=== PATIENT | male | born 1960 | race Caucasian/White ===

== ENCOUNTER 2018-01-07 09:49 | Emergency (ER) | payer BC ==
[2018-01-07] MEDS ORDERED: Sodium Chloride 0.9% 10 ML Syringe FLUSH PRN (10:19)
[2018-01-07] MEDS ORDERED: Sodium Chloride 0.9% 2.5 ML Syringe FLUSH PRN (10:19)
[2018-01-07] MEDS ORDERED: Sodium Chloride 0.9% 1,000 ML IV ONE (10:19)
--- NOTE | 2018-01-07 10:30 | EDM.PDOC ---
ED HPI GENERAL MEDICAL PROBLEM - General Chief Complaint: Cardiovascular Problem Stated Complaint: PT IS HAVING REACTION TO HIS MEDS Time Seen by Provider: 01/07/18 10:21 Source of Information: Reports: Patient History Limitations: Reports: No Limitations - History of Present Illness INITIAL COMMENTS - FREE TEXT/NARRATIVE: HISTORY AND PHYSICAL: History of present illness: Patient is a 57-year-old male here with concerns of a reaction to his medications. He states that he is having muscle cramping, dizziness, ringing in his ears, and feeling jittery. He states the cramping in his calves is bothering him the most. He reports he became jittery after using his Bevespi inhaler. He was started on multiple new medications by Dr. Galloway on 01/05. He was started on Buspirone for depression, HCTZ and losartan for HTN, and Bevespi for COPD. Patient states that he is dehydrated. He reports he has had issues with diarrhea chronically but it has been worse since starting these new medications. He denies any nausea or vomiting. He was seen in the ER on 12/20 for back pain and muscle cramps and was started on flexeril and diclofenac at that time. He states he had a chest pressure yesterday but states this is his GERD, he denies any pain today. He has had this pain for weeks. He denies any shortness of breath, diaphoresis, or radiation of pain to left jaw or arm. Patient has a follow up with Dr. Galloway on 01/10. Review of systems: As per history of present illness and below otherwise all systems reviewed and negative. Past medical history: As per history of present illness and as reviewed below otherwise noncontributory. Surgical history: As per history of present illness and as reviewed below otherwise noncontributory. Social history: No reported history of drug or alcohol abuse. Family history: As per history of present illness and as reviewed below otherwise noncontributory. Physical exam: General: patient sitting comfortably in no acute distress HEENT: Atraumatic, normocephalic, pupils reactive, negative for conjunctival pallor or scleral icterus, mucous membranes moist, throat clear, neck supple, nontender, trachea midline. Lungs: Clear to auscultation, breath sounds equal bilaterally, chest nontender. Heart: S1S2, regular, negative for clicks, rubs, or JVD. Abdomen: Soft, nondistended, nontender. Negative for masses or hepatosplenomegaly. Negative for costovertebral tenderness. Pelvis: Stable nontender. Genitourinary: Deferred. Rectal: Deferred. Extremities: Cramping noted in the calves. There is ecchymosis to the right calf. No edema noted. Atraumatic, negative for cords or calf pain. Neurovascular unremarkable. Neuro: Awake, alert, oriented. Cranial nerves II through XII unremarkable. Cerebellum unremarkable. Motor and sensory unremarkable throughout. Exam nonfocal. Notes: Patient reports feeling much better after fluids Diagnostics: CBC, CMP, Troponin EKG Therapeutics: 1L NS IV Impression: Muscle cramping Plan: 1. Take flexeril and diclofenac as directed. May take tylenol if needed but avoid additional NDSAIDs while taking diclofenac 2. Follow up with your primary care provider 3. Return ED as needed as discussed Definitive disposition and diagnosis as appropriate pending reevaluation and review of above. Bilateral Lower Leg Pain Score (Numeric/FACES): 8 - Related Data Allergies Allergy/AdvReac Type Severity Reaction Status Date / Time No Known Allergies Allergy Verified 12/20/17 13:31 Home Meds: Home Meds Cyclobenzaprine [Flexeril] 10 mg PO TID PRN #21 tab 12/20/17 [Rx] Diclofenac Sodium [Voltaren] 75 mg PO BIDMEALS PRN #30 tab.cr 12/20/17 [Rx] Omeprazole 1 tab PO DAILY 12/20/17 [History] Glycopyrrolate/Formoterol Fum [Bevespi Aerosphere Inhaler] 1 puff 01/07/18 [ History] Losartan [Cozaar] 50 mg DAILY 01/07/18 [History] busPIRone HCl [Buspirone HCl] 7.5 mg BID 01/07/18 [History] hydroCHLOROthiazide [Hydrochlorothiazide] 12.5 mg DAILY 01/07/18 [History] Past Medical History Gastrointestinal History: Reports: GERD - Infectious Disease History Infectious Disease History: Reports: Chicken Pox, Measles - Past Surgical History Musculoskeletal Surgical History: Reports: Other (See Below) Other Musculoskeletal Surgeries/Procedures:: Right knee, Right ankle Social & Family History - Family History Family Medical History: Noncontributory - Caffeine Use Caffeine Use: Reports: Coffee ED ROS GENERAL - Review of Systems Review Of Systems: ROS reveals no pertinent complaints other than HPI. ED EXAM, GENERAL - Physical Exam Exam: See Below (see dictation) Course - Vital Signs Last Recorded V/S: Last Vital Signs Temp 36.4 C 01/07/18 10:23 Pulse 91 01/07/18 10:23 Resp 18 01/07/18 10:23 BP 123/94 H 01/07/18 10:23 Pulse Ox 98 01/07/18 10:23 - Orders/Labs/Meds Orders: Active Orders 24 hr Category Date Time Status EKG 12 Lead [EKG Documentation Completion] [RC] STAT Care 01/07/18 10:09 Active Sodium Chloride 0.9% [Saline Flush] Med 01/07/18 10:19 Active 10 ml FLUSH ASDIRECTED PRN Sodium Chloride 0.9% [Saline Flush] Med 01/07/18 10:19 Active 2.5 ml FLUSH ASDIRECTED PRN Saline Lock Insert [OM.PC] Stat Oth 01/07/18 10:19 Ordered Medication Orders Sodium Chloride (Saline Flush) 10 ml FLUSH ASDIRECTED PRN PRN Reason: Keep Vein Open Sodium Chloride (Saline Flush) 2.5 ml FLUSH ASDIRECTED PRN PRN Reason: Keep Vein Open Labs: Laboratory Tests 01/07/18 01/07/18 01/07/18 Range/Units 10:18 10:18 10:18 WBC 8.71 (4.0-11.0) K/uL RBC 4.95 (4.50-5.90) M/uL Hgb 16.8 (13.0-17.0) g/dL Hct 48.9 (38.0-50.0) % MCV 98.8 H (80.0-98.0) fL MCH 33.9 H (27.0-32.0) pg MCHC 34.4 (31.0-37.0) g/dL RDW Std Deviation 55.2 (28.0-62.0) fl RDW Coeff of Marito 15 (11.0-15.0) % Plt Count 190 (150-400) K/uL MPV 10.80 (7.40-12.00) fL Add Manual Diff YES Neutrophils % (Manual) 77 (48.0-80.0) % Band Neutrophils % 6 % Lymphocytes % (Manual) 16 (16.0-40.0) % Monocytes % (Manual) 1 (0.0-15.0) % Nucleated RBC % 0.0 /100WBC Absolute Seg Neuts 6.7 H (1.4-5.7) Band Neutrophils # 0.5 Lymphocytes # (Manual) 1.4 (0.6-2.4) Monocytes # (Manual) 0.1 (0.0-0.8) Nucleated RBCs # 0 K/uL Sodium 133 L (136-148) mmol/L Potassium 4.0 (3.5-5.1) mmol/L Chloride 99 (98-107) mmol/L Carbon Dioxide 24.5 (21.0-32.0) mmol/L BUN 13 (7.0-18.0) mg/dL Creatinine 1.2 (0.8-1.3) mg/dL Est Cr Clr Drug Dosing TNP Estimated GFR (MDRD) > 60.0 ml/min Glucose 136 H (74-106) mg/dL Calcium 9.2 (8.5-10.1) mg/dL Total Bilirubin 1.0 (0.2-1.0) mg/dL AST 22 (15-37) IU/L ALT 38 (14-63) IU/L Alkaline Phosphatase 58 (46-116) U/L Creatine Kinase 404 H (26-308) U/L Troponin I < 0.050 (0.000-0.056) ng/mL Total Protein 7.6 (6.4-8.2) g/dL Albumin 3.8 (3.4-5.0) g/dL Globulin 3.8 H (2.0-3.5) g/dL Albumin/Globulin Ratio 1.0 L (1.3-2.8) Meds: Medications Generic Name Dose Route Start Last Admin Trade Name Freq PRN Reason Stop Dose Admin Sodium Chloride 10 ml 01/07/18 10:19 Saline Flush FLUSH ASDIRECTED PRN Keep Vein Open Sodium Chloride 2.5 ml 01/07/18 10:19 Saline Flush FLUSH ASDIRECTED PRN Keep Vein Open Discontinued Medications Generic Name Dose Route Start Last Admin Trade Name Freq PRN Reason Stop Dose Admin Sodium Chloride 1,000 mls @ 999 mls/hr 01/07/18 10:19 01/07/18 10:28 Normal Saline IV 01/07/18 11:19 999 mls/hr STAT ONE Administration Departure - Departure Time of Disposition: 11:25 Disposition: Home, Self-Care 01 Condition: Good Clinical Impression: Muscle cramping Referrals: PCP,None [Primary Care Provider] - Forms: ED Department Discharge Additional Instructions: The following information is given to patients seen in the emergency department who are being discharged to home. This information is to outline your options for follow-up care. We provide all patients seen in our emergency department with a follow-up referral. The need for follow-up, as well as the timing and circumstances, are variable depending upon the specifics of your emergency department visit. If you don't have a primary care physician on staff, we will provide you with a referral. We always advise you to contact your personal physician following an emergency department visit to inform them of the circumstance of the visit and for follow-up with them and/or the need for any referrals to a consulting specialist. The emergency department will also refer you to a specialist when appropriate. This referral assures that you have the opportunity for follow-up care with a specialist. All of these measure are taken in an effort to provide you with optimal care, which includes your follow-up. Under all circumstances we always encourage you to contact your private physician who remains a resource for coordinating your care. When calling for follow-up care, please make the office aware that this follow-up is from your recent emergency room visit. If for any reason you are refused follow-up, please contact the [facility] at and asked to speak to the emergency department charge nurse. [facility] [address] [place] [id number] 1. Take flexeril and diclofenac as directed. May take tylenol if needed but avoid additional NDSAIDs while taking diclofenac. Heat and muscle muscles as needed. 2. Follow up with your primary care provider 3. Return ED as needed as discussed - My Orders Last 24 Hours: My Active Orders 01/07/18 10:09 EKG 12 Lead [EKG Documentation Completion] [RC] STAT 01/07/18 10:19 Sodium Chloride 0.9% [Saline Flush] 10 ml FLUSH ASDIRECTED PRN Sodium Chloride 0.9% [Saline Flush] 2.5 ml FLUSH ASDIRECTED PRN Saline Lock Insert [OM.PC] Stat - Assessment/Plan Last 24 Hours: My Active Orders 01/07/18 10:09 EKG 12 Lead [EKG Documentation Completion] [RC] STAT 01/07/18 10:19 Sodium Chloride 0.9% [Saline Flush] 10 ml FLUSH ASDIRECTED PRN Sodium Chloride 0.9% [Saline Flush] 2.5 ml FLUSH ASDIRECTED PRN Saline Lock Insert [OM.PC] Stat
[2018-01-07 11:10] LABS: CHLORIDE,CL 99 mmol/L (98-107); SODIUM,NA 133 mmol/L (136-148)
== END 2018-01-07 11:40 | disposition home or self-care (01) ==
LOC: MW.ED 09:49
DX: R25.2 Cramp and spasm (principal); K21.9 Gastro-esophageal reflux disease without esophagitis; Z79.899 Other long term (current) drug therapy
CPT/HCPCS: 36415; 80053; 82550; 84484; 85025; 93005; 96360; 99283; J7040

== ENCOUNTER 2018-01-14 12:54 | Observation (INO) | payer BC ==
[2018-01-14] MEDS ORDERED: Sodium Chloride 0.9% 1,000 ML IV ONE ×2 (13:11→14:27)
[2018-01-14] MEDS ORDERED: Pantoprazole 40 MG Vial IVPUSH ONE (13:11)
[2018-01-14] MEDS ORDERED: Aspirin 81 MG Tab.Chew PO ONE (13:11)
[2018-01-14] MEDS ORDERED: LORazepam 2 MG/ML SDV IVPUSH ONE ×2 (13:11→22:30)
[2018-01-14] MEDS ORDERED: Sodium Chloride 0.9% 10 ML Syringe FLUSH PRN (13:11)
[2018-01-14] MEDS ORDERED: Sodium Chloride 0.9% 2.5 ML Syringe FLUSH PRN (13:11)
[2018-01-14] MEDS ORDERED: Ondansetron 4 MG/2 ML SDV IVPUSH ONE (13:11)
--- NOTE | 2018-01-14 13:18 | EDM.PDOC ---
ED HPI GENERAL MEDICAL PROBLEM - General Chief Complaint: Chest Pain Stated Complaint: CHEST PAIN Time Seen by Provider: 01/14/18 13:00 - History of Present Illness INITIAL COMMENTS - FREE TEXT/NARRATIVE: HISTORY AND PHYSICAL: History of present illness: The patient is a 57-year-old male who follows in our clinics with Dr. Galloway and has a history of hypertension hypercholesterolemia and depression and is currently being worked up for COPD as he is a smoker and presents with complaints of nausea and vomiting that started at 2 AM after he ate pizza at lunch, which he never eats, but no diarrhea and now is experiencing midsternal chest pain pressure. He says that the pain started soon after vomiting but was in intensity until he was doing some activities at work when he felt like it got worse. Today's visit is the patient's third ER visit this month and he was seen here in December 20 for back pain and was treated he followed up with his provider in the clinic on January 05 and then he was here on January 04 for possible reaction to his medications. He says he has acid reflux and on that last ER visit he did complain of some chest pain that he thought was his acid reflux but he was evaluated and those tests were all negative. Since that visit he has followed up with his provider in the clinic who felt that he was not having a reaction to meds but he was just using them properly and those medications were not stopped. The patient does admit that he does drink a lot of caffeinated products and smokes cigarettes but denies drug use. He says the pain as a burning stabbing like pain and it did start after the vomiting and now he is feeling somewhat anxious. The patient says he can be an anxious renzo. The patient denies any trauma to his chest and has no abdominal pain per se and has had no diarrhea. He says that since the vomiting has had not much to eat or drink. The patient says that he has had chest pain in the past but has always attributed to his acid reflux but he thinks that this feels much differently. Please note that the patient with the symptoms has no shortness of breath The patient tells nursing that when he was at his last clinic appointment Dr. Galloway did adjust his blood pressure medications and he is not sure if that is contributing. The patient had pulmonary function tests done in the last few days as well the results of which he does not know. Review of systems: As per history of present illness and below otherwise all systems reviewed and negative. Past medical history: As per history of present illness and as reviewed below otherwise noncontributory. Surgical history: As per history of present illness and as reviewed below otherwise noncontributory. Social history: No reported history of drug or alcohol abuse. Family history: As per history of present illness and as reviewed below otherwise noncontributory. Physical exam: General: Well-developed well-nourished thin man who is nontoxic and vital signs are noted by me. He seems somewhat anxious in the room visiting and twitching but is cooperative and interactive. HEENT: Atraumatic, normocephalic, negative for conjunctival pallor or scleral icterus, mucous membranes tacky throat clear, neck supple, nontender, trachea midline. Lungs: Clear to auscultation, breath sounds equal bilaterally, chest nontender. There is no wheezing or stridor. There is no crepitus on palpation of the chest and no chest wall tenderness. Heart: S1S2, regular rhythm and tachycardic rate of my evaluation Abdomen: Soft, mildly distended nontender. Negative for masses or hepatosplenomegaly. Slightly full active bowel sounds and the patient has tympany on percussion of the upper abdomen without rebound or guarding. There is an umbilical/supraumbilical vertical small incision from the patient's umbilical hernia repair in the past and I do not feel any overt hernial defect but there is tenderness with palpation of this area. Pelvis: Stable nontender. Genitourinary: Deferred. Rectal: Deferred. Extremities: Atraumatic, negative for cords or calf pain. Neurovascular unremarkable. No pedal edema or leg asymmetry Neuro: Awake, alert, oriented. Cranial nerves II through XII unremarkable. Cerebellum unremarkable. Motor and sensory unremarkable throughout. Exam nonfocal. Skin: There is no diaphoresis turgor is normal and there are no overt rashes or lesions Diagnostics: EKG CBC CMP amylase lipase troponin INR H. pylori UA abdominal films with chest x-ray scan of the abdomen and pelvis Therapeutics: IV O2 monitor IV fluids Protonix Zofran Ativan Patient had EKG and cardiac enzymes performed on his last ED visit on January 07 which were negative. Patient's BUN/creatinine today are 23 and 1.9 which is up from his blood work performed on January 07 revealing a BU 1 of 13 and creatinine 1.2. This would be consistent with the patient's intractable vomiting and clinical dehydration. Patient's heart rate is improving and I will give a second liter of IV fluids. He is aware of testing results and currently is not having any chest pain but still feels distended and bloated. We will proceed to do a CT scan of the abdomen and pelvis in light of the x-ray findings Patient's heart rate is 99 blood pressure 119/81 1601: I discussed the case with Dr. Brannon and he would like admission to go to the hospitalist with him on his consult and he would like an NG tube to be placed. He also wanted me to get the old op note from the patient's ventral hernia repair but the patient tells me that that was more than 10 years ago. Nursing still will try to investigate getting this information. Patient is now saying that he doesn't even recall what hospital but it's someplace in [facility] and he is not entirely sure of the exact year. I will inform Dr Brannon of this information. 1642: Dr Nguyen is aware of this case and accepts the patient for admission. Patient also is aware of all testing results and is agreeable with admission. Impression: Small bowel obstruction Definitive disposition and diagnosis as appropriate pending reevaluation and review of above. Chest Pain Score (Numeric/FACES): 8 - Related Data Allergies Allergy/AdvReac Type Severity Reaction Status Date / Time No Known Allergies Allergy Verified 01/14/18 14:06 Home Meds: Home Meds Cyclobenzaprine [Flexeril] 10 mg PO TID PRN #21 tab 12/20/17 [Rx] Diclofenac Sodium [Voltaren] 75 mg PO BIDMEALS PRN #30 tab.cr 12/20/17 [Rx] Omeprazole 1 tab PO DAILY 12/20/17 [History] Glycopyrrolate/Formoterol Fum [Bevespi Aerosphere Inhaler] 1 puff INH 01/07/18 [ History] Losartan [Cozaar] 50 mg PO DAILY 01/07/18 [History] busPIRone HCl [Buspirone HCl] 7.5 mg PO BID 01/07/18 [History] hydroCHLOROthiazide [Hydrochlorothiazide] 12.5 mg PO DAILY 01/07/18 [History] Past Medical History Cardiovascular History: Reports: Heart Murmur, Hypertension, SOB on Exertion Respiratory History: Reports: COPD Gastrointestinal History: Reports: GERD Genitourinary History: Reports: Prostate Disorder Musculoskeletal History: Reports: Back Pain, Chronic, Fracture Psychiatric History: Reports: Addiction Other Psychiatric History: prior opioid addiction 7 yrs ago Endocrine/Metabolic History: Reports: Other (See Below) Other Endocrine/Metabolic History: "thyroid problems" - Infectious Disease History Infectious Disease History: Reports: Chicken Pox, Measles - Past Surgical History Musculoskeletal Surgical History: Reports: Other (See Below) Other Musculoskeletal Surgeries/Procedures:: Right knee, Right ankle Social & Family History - Family History Family Medical History: Noncontributory - Caffeine Use Caffeine Use: Reports: Coffee ED ROS GENERAL - Review of Systems Review Of Systems: ROS reveals no pertinent complaints other than HPI. ED EXAM, GENERAL - Physical Exam Exam: See Below (See dictation) Course - Vital Signs Last Recorded V/S: Last Vital Signs Temp 35.9 C 01/14/18 12:54 Pulse 99 01/14/18 16:00 Resp 16 01/14/18 16:00 BP 119/81 01/14/18 16:00 Pulse Ox 97 01/14/18 16:00 - Orders/Labs/Meds Orders: Active Orders 24 hr Category Date Time Status Patient Status [ADT] Stat ADT 01/14/18 16:12 Active Cardiac Monitoring [RC] . DIRECTED Care 01/14/18 13:10 Active EKG Documentation Completion [RC] STAT Care 01/14/18 13:10 Active Notify Provider Consults [RC] ASDIRECTED Care 01/14/18 16:02 Active Oxygen Therapy, ED [RC] ASDIRECTED Care 01/14/18 13:10 Active Pulse Oximetry [RC] ASDIRECTED Care 01/14/18 13:10 Active Consult to Physician [CONS] Stat Cons 01/14/18 16:02 Active Abdomen Pelvis wo Cont [CT] Stat Exams 01/14/18 14:27 Taken UA W/MICROSCOPIC [URIN] Stat Lab 01/14/18 14:20 Ordered Lactated Ringers [Ringers, Lactated] 1,000 ml Med 01/14/18 16:00 Active IV ASDIRECTED Sodium Chloride 0.9% [Saline Flush] Med 01/14/18 13:11 Active 10 ml FLUSH ASDIRECTED PRN Sodium Chloride 0.9% [Saline Flush] Med 01/14/18 13:11 Active 2.5 ml FLUSH ASDIRECTED PRN Nasogastric Orogastric Tube Insertion [OM.PC] Stat Ot 01/14/18 16:02 Ordered Saline Lock Insert [OM.PC] Stat Ot 01/14/18 13:10 Ordered Medication Orders Lactated Ringer's (Ringers, Lactated) 1,000 mls @ 150 mls/hr IV ASDIRECTED TERENCE Last Admin: 01/14/18 16:05 Dose: 150 mls/hr Sodium Chloride (Saline Flush) 10 ml FLUSH ASDIRECTED PRN PRN Reason: Keep Vein Open Sodium Chloride (Saline Flush) 2.5 ml FLUSH ASDIRECTED PRN PRN Reason: Keep Vein Open Labs: Laboratory Tests 01/14/18 01/14/18 01/14/18 Range/Units 13:21 13:21 13:21 WBC 10.49 (4.0-11.0) K/uL RBC 5.06 (4.50-5.90) M/uL Hgb 17.0 (13.0-17.0) g/dL Hct 49.0 (38.0-50.0) % MCV 96.8 (80.0-98.0) fL MCH 33.6 H (27.0-32.0) pg MCHC 34.7 (31.0-37.0) g/dL RDW Std Deviation 51.3 (28.0-62.0) fl RDW Coeff of Marito 15 (11.0-15.0) % Plt Count 167 (150-400) K/uL MPV 11.20 (7.40-12.00) fL Neut % (Auto) 96.1 H (48.0-80.0) % Lymph % (Auto) 2.9 L (16.0-40.0) % Major % (Auto) 0.6 (0.0-15.0) % Eos % (Auto) 0.2 (0.0-7.0) % Baso % (Auto) 0.2 (0.0-1.5) % Neut # (Auto) 10.1 H (1.4-5.7) K/uL Lymph # (Auto) 0.3 L (0.6-2.4) K/uL Major # (Auto) 0.1 (0.0-0.8) K/uL Eos # (Auto) 0.0 (0.0-0.7) K/uL Baso # (Auto) 0.0 (0.0-0.1) K/uL Nucleated RBC % 0.0 /100WBC Nucleated RBCs # 0 K/uL INR 1.04 Sodium 133 L (136-148) mmol/L Potassium 3.1 L (3.5-5.1) mmol/L Chloride 96 L (98-107) mmol/L Carbon Dioxide 24.4 (21.0-32.0) mmol/L BUN 23 H (7.0-18.0) mg/dL Creatinine 1.9 H (0.8-1.3) mg/dL Est Cr Clr Drug Dosing 45.83 mL/min Estimated GFR (MDRD) 36.6 ml/min Glucose 126 H (74-106) mg/dL Calcium 9.3 (8.5-10.1) mg/dL Total Bilirubin 2.0 H (0.2-1.0) mg/dL AST 31 (15-37) IU/L ALT 39 (14-63) IU/L Alkaline Phosphatase 69 (46-116) U/L Troponin I < 0.050 (0.000-0.056) ng/mL Total Protein 7.6 (6.4-8.2) g/dL Albumin 4.0 (3.4-5.0) g/dL Globulin 3.6 H (2.0-3.5) g/dL Albumin/Globulin Ratio 1.1 L (1.3-2.8) Amylase 42 (25-115) U/L Lipase 151 (73-393) U/L Urine Color Urine Appearance Urine pH (5.0-8.0) Ur Specific [place] (1.001-1.035) Urine Protein (NEGATIVE) mg/dL Urine Glucose (UA) (NEGATIVE) mg/dL Urine Ketones (NEGATIVE) mg/dL Urine Occult Blood (NEGATIVE) Urine Nitrite (NEGATIVE) Urine Bilirubin (NEGATIVE) Urine Ictotest Urine Urobilinogen (<2.0) EU/dL Ur Leukocyte Esterase (NEGATIVE) Urine RBC (0-2/HPF) Urine WBC (0-5/HPF) Ur Epithelial Cells (NONE-FEW) Amorphous Sediment (NEGATIVE) Urine Bacteria (NEGATIVE) H. pylori IgG Antibody (NEG) 01/14/18 01/14/18 Range/Units 13:21 14:20 WBC (4.0-11.0) K/uL RBC (4.50-5.90) M/uL Hgb (13.0-17.0) g/dL Hct (38.0-50.0) % MCV (80.0-98.0) fL MCH (27.0-32.0) pg MCHC (31.0-37.0) g/dL RDW Std Deviation (28.0-62.0) fl RDW Coeff of Marito (11.0-15.0) % Plt Count (150-400) K/uL MPV (7.40-12.00) fL Neut % (Auto) (48.0-80.0) % Lymph % (Auto) (16.0-40.0) % Major % (Auto) (0.0-15.0) % Eos % (Auto) (0.0-7.0) % Baso % (Auto) (0.0-1.5) % Neut # (Auto) (1.4-5.7) K/uL Lymph # (Auto) (0.6-2.4) K/uL Major # (Auto) (0.0-0.8) K/uL Eos # (Auto) (0.0-0.7) K/uL Baso # (Auto) (0.0-0.1) K/uL Nucleated RBC % /100WBC Nucleated RBCs # K/uL INR Sodium (136-148) mmol/L Potassium (3.5-5.1) mmol/L Chloride (98-107) mmol/L Carbon Dioxide (21.0-32.0) mmol/L BUN (7.0-18.0) mg/dL Creatinine (0.8-1.3) mg/dL Est Cr Clr Drug Dosing mL/min Estimated GFR (MDRD) ml/min Glucose (74-106) mg/dL Calcium (8.5-10.1) mg/dL Total Bilirubin (0.2-1.0) mg/dL AST (15-37) IU/L ALT (14-63) IU/L Alkaline Phosphatase (46-116) U/L Troponin I (0.000-0.056) ng/mL Total Protein (6.4-8.2) g/dL Albumin (3.4-5.0) g/dL Globulin (2.0-3.5) g/dL Albumin/Globulin Ratio (1.3-2.8) Amylase (25-115) U/L Lipase (73-393) U/L Urine Color YELLOW Urine Appearance CLEAR Urine pH 6.0 (5.0-8.0) Ur Specific [place] 1.020 (1.001-1.035) Urine Protein TRACE (NEGATIVE) mg/dL Urine Glucose (UA) NEGATIVE (NEGATIVE) mg/dL Urine Ketones NEGATIVE (NEGATIVE) mg/dL Urine Occult Blood NEGATIVE (NEGATIVE) Urine Nitrite NEGATIVE (NEGATIVE) Urine Bilirubin SMALL H (NEGATIVE) Urine Ictotest NEGATIVE Urine Urobilinogen 0.2 (<2.0) EU/dL Ur Leukocyte Esterase NEGATIVE (NEGATIVE) Urine RBC 0-1 (0-2/HPF) Urine WBC 0-1 (0-5/HPF) Ur Epithelial Cells RARE (NONE-FEW) Amorphous Sediment LIGHT (NEGATIVE) Urine Bacteria RARE (NEGATIVE) H. pylori IgG Antibody NEGATIVE (NEG) Meds: Medications Generic Name Dose Route Start Last Admin Trade Name Freq PRN Reason Stop Dose Admin Lactated Ringer's 1,000 mls @ 150 mls/hr 01/14/18 16:00 01/14/18 16:05 Ringers, Lactated IV 150 mls/hr ASDIRECTED TERENCE Administration Sodium Chloride 10 ml 01/14/18 13:11 Saline Flush FLUSH ASDIRECTED PRN Keep Vein Open Sodium Chloride 2.5 ml 01/14/18 13:11 Saline Flush FLUSH ASDIRECTED PRN Keep Vein Open Discontinued Medications Generic Name Dose Route Start Last Admin Trade Name Freq PRN Reason Stop Dose Admin Aspirin 324 mg 01/14/18 13:11 01/14/18 13:32 Aspirin PO 01/14/18 13:12 324 mg ONETIME ONE Administration Sodium Chloride 1,000 mls @ 999 mls/hr 01/14/18 13:11 01/14/18 13:30 Normal Saline IV 01/14/18 14:11 999 mls/hr STAT ONE Administration Sodium Chloride 1,000 mls @ 999 mls/hr 01/14/18 14:27 01/14/18 14:30 Normal Saline IV 01/14/18 15:27 999 mls/hr STAT ONE Administration Lorazepam 1 mg 01/14/18 13:11 01/14/18 13:34 Ativan IVPUSH 01/14/18 13:12 1 mg ONETIME ONE Administration Ondansetron HCl 4 mg 01/14/18 13:11 01/14/18 13:31 Zofran IVPUSH 01/14/18 13:12 4 mg ONETIME ONE Administration Pantoprazole Sodium 80 mg 01/14/18 13:11 01/14/18 13:33 Protonix Iv IVPUSH 01/14/18 13:12 80 mg .BOLUS ONE Administration Departure - Departure Time of Disposition: 16:12 Disposition: Refer to Observation Condition: Good Clinical Impression: Small bowel obstruction - Discharge Information Referrals: PCP,None [Primary Care Provider] - Forms: ED Department Discharge - My Orders Last 24 Hours: My Active Orders 01/14/18 13:10 Cardiac Monitoring [RC] . DIRECTED EKG Documentation Completion [RC] STAT Oxygen Therapy, ED [RC] ASDIRECTED Pulse Oximetry [RC] ASDIRECTED Saline Lock Insert [OM.PC] Stat 01/14/18 13:11 Sodium Chloride 0.9% [Saline Flush] 10 ml FLUSH ASDIRECTED PRN Sodium Chloride 0.9% [Saline Flush] 2.5 ml FLUSH ASDIRECTED PRN 01/14/18 14:20 UA W/MICROSCOPIC [URIN] Stat 01/14/18 14:27 Abdomen Pelvis wo Cont [CT] Stat 01/14/18 16:00 Lactated Ringers [Ringers, Lactated] 1,000 ml IV ASDIRECTED 01/14/18 16:02 Notify Provider Consults [RC] ASDIRECTED Consult to Physician [CONS] Stat Nasogastric Orogastric Tube Insertion [OM.PC] Stat 01/14/18 16:12 Patient Status [ADT] Stat - Assessment/Plan Last 24 Hours: My Active Orders 01/14/18 13:10 Cardiac Monitoring [RC] . DIRECTED EKG Documentation Completion [RC] STAT Oxygen Therapy, ED [RC] ASDIRECTED Pulse Oximetry [RC] ASDIRECTED Saline Lock Insert [OM.PC] Stat 01/14/18 13:11 Sodium Chloride 0.9% [Saline Flush] 10 ml FLUSH ASDIRECTED PRN Sodium Chloride 0.9% [Saline Flush] 2.5 ml FLUSH ASDIRECTED PRN 01/14/18 14:20 UA W/MICROSCOPIC [URIN] Stat 01/14/18 14:27 Abdomen Pelvis wo Cont [CT] Stat 01/14/18 16:00 Lactated Ringers [Ringers, Lactated] 1,000 ml IV ASDIRECTED 01/14/18 16:02 Notify Provider Consults [RC] ASDIRECTED Consult to Physician [CONS] Stat Nasogastric Orogastric Tube Insertion [OM.PC] Stat 01/14/18 16:12 Patient Status [ADT] Stat
[2018-01-14 14:08] LABS: CHLORIDE,CL 96 mmol/L (98-107); SODIUM,NA 133 mmol/L (136-148)
--- NOTE | 2018-01-14 14:20 | CR ---
EXAMINATION: Chest and abdomen HISTORY: Pain COMPARISON: Dictated 12/20/2017 TECHNIQUE: PA chest and AP and upright views of the abdomen. FINDINGS: There is no free air under the diaphragm. Stool and gas is noted within the colon, however there are a few mildly prominent loops of small bowel measuring up to 4.8 cm. A few pill capsules are noted. No abnormal calcifications project over the kidneys. Visualized osseous structures appear nor mal. IMPRESSION: Few prominent loops of small bowel noted. This could represent a partial obstruction vers us ileus.
[2018-01-14] MEDS ORDERED: Lactated Ringers 1,000 ML IV SCH (16:00)
[2018-01-14] MEDS ORDERED: Morphine 2 MG/ML Syringe IVPUSH ONE (17:10)
--- NOTE | 2018-01-14 18:41 | PCM.SN ---
- Free Text/Narrative Note: Pt seen, chart reviewed; no abd pain, but hi ngt output upon insertion, 1250cc; k 3.1, keep k above 4; will follow with you [id number]
--- NOTE | 2018-01-14 18:42 | PCM.SN ---
- Free Text/Narrative Note: avoid lovenox, narcotics, thanks
[2018-01-14] MEDS ORDERED: Cyclobenzaprine 10 MG Tab PO PRN (19:51)
[2018-01-14] MEDS ORDERED: HYDROmorphone 4 MG/ML Syringe IVPUSH PRN (20:01)
[2018-01-14] MEDS: Sodium Chloride 0.9% with KCl 1,000 ML IV SCH (20:20)
--- NOTE | 2018-01-14 20:22 | PCM.HP ---
H&P History of Present Illness - General Admit Problem/Dx: Admission Diagnosis/Problem Admission Diagnosis/Problem Small bowel obstruction Chest Pain Score (Numeric/FACES): 8 - Related Data Allergies/Adverse Reactions: Allergies Allergy/AdvReac Type Severity Reaction Status Date / Time morphine Allergy Headache Verified 01/14/18 18:41 Home Medications: Home Meds Cyclobenzaprine [Flexeril] 10 mg PO TID PRN #21 tab 12/20/17 [Rx] Diclofenac Sodium [Voltaren] 75 mg PO BIDMEALS PRN #30 tab.cr 12/20/17 [Rx] Omeprazole 1 tab PO DAILY 12/20/17 [History] Glycopyrrolate/Formoterol Fum [Bevespi Aerosphere Inhaler] 1 puff INH 01/07/18 [ History] Losartan [Cozaar] 50 mg PO DAILY 01/07/18 [History] busPIRone HCl [Buspirone HCl] 7.5 mg PO BID 01/07/18 [History] hydroCHLOROthiazide [Hydrochlorothiazide] 12.5 mg PO DAILY 01/07/18 [History] Past Medical History Cardiovascular History: Reports: Heart Murmur, Hypertension, SOB on Exertion Respiratory History: Reports: COPD Gastrointestinal History: Reports: GERD Genitourinary History: Reports: Prostate Disorder Musculoskeletal History: Reports: Back Pain, Chronic, Fracture Psychiatric History: Reports: Addiction Other Psychiatric History: prior opioid addiction 7 yrs ago Endocrine/Metabolic History: Reports: Other (See Below) Other Endocrine/Metabolic History: "thyroid problems" - Infectious Disease History Infectious Disease History: Reports: Chicken Pox, Measles - Past Surgical History Musculoskeletal Surgical History: Reports: Other (See Below) Other Musculoskeletal Surgeries/Procedures:: Right knee, Right ankle Social & Family History - Family History Family Medical History: Noncontributory - Tobacco Use Smoking Status *Q: Current Every Day Smoker Years of Tobacco use: 15 Packs/Tins Daily: 0.5 - Caffeine Use Caffeine Use: Reports: Coffee Other Caffeine Use: 3 cups - Recreational Drug Use Recreational Drug Use: No Exam - Vital Signs Vital Signs: Last Vital Signs Temp 98.2 F 01/14/18 20:00 Pulse 62 01/14/18 20:00 Resp 18 01/14/18 20:00 BP 104/69 01/14/18 20:00 Pulse Ox 96 01/14/18 20:00 Weight: 184 lb 12.8 oz - Patient Data Lab Results Last 24 hrs: Laboratory Results - last 24 hr 01/14/18 01/14/18 01/14/18 Range/Units 13:21 13:21 13:21 WBC 10.49 (4.0-11.0) K/uL RBC 5.06 (4.50-5.90) M/uL Hgb 17.0 (13.0-17.0) g/dL Hct 49.0 (38.0-50.0) % MCV 96.8 (80.0-98.0) fL MCH 33.6 H (27.0-32.0) pg MCHC 34.7 (31.0-37.0) g/dL RDW Std Deviation 51.3 (28.0-62.0) fl RDW Coeff of Marito 15 (11.0-15.0) % Plt Count 167 (150-400) K/uL MPV 11.20 (7.40-12.00) fL Neut % (Auto) 96.1 H (48.0-80.0) % Lymph % (Auto) 2.9 L (16.0-40.0) % [place] % (Auto) 0.6 (0.0-15.0) % Eos % (Auto) 0.2 (0.0-7.0) % Baso % (Auto) 0.2 (0.0-1.5) % Neut # (Auto) 10.1 H (1.4-5.7) K/uL Lymph # (Auto) 0.3 L (0.6-2.4) K/uL [place] # (Auto) 0.1 (0.0-0.8) K/uL Eos # (Auto) 0.0 (0.0-0.7) K/uL Baso # (Auto) 0.0 (0.0-0.1) K/uL Nucleated RBC % 0.0 /100WBC Nucleated RBCs # 0 K/uL INR 1.04 Sodium 133 L (136-148) mmol/L Potassium 3.1 L (3.5-5.1) mmol/L Chloride 96 L (98-107) mmol/L Carbon Dioxide 24.4 (21.0-32.0) mmol/L BUN 23 H (7.0-18.0) mg/dL Creatinine 1.9 H (0.8-1.3) mg/dL Est Cr Clr Drug Dosing 45.83 mL/min Estimated GFR (MDRD) 36.6 ml/min Glucose 126 H (74-106) mg/dL Calcium 9.3 (8.5-10.1) mg/dL Total Bilirubin 2.0 H (0.2-1.0) mg/dL AST 31 (15-37) IU/L ALT 39 (14-63) IU/L Alkaline Phosphatase 69 (46-116) U/L Troponin I < 0.050 (0.000-0.056) ng/mL Total Protein 7.6 (6.4-8.2) g/dL Albumin 4.0 (3.4-5.0) g/dL Globulin 3.6 H (2.0-3.5) g/dL Albumin/Globulin Ratio 1.1 L (1.3-2.8) Amylase 42 (25-115) U/L Lipase 151 (73-393) U/L Urine Color Urine Appearance Urine pH (5.0-8.0) Ur Specific [place] (1.001-1.035) Urine Protein (NEGATIVE) mg/dL Urine Glucose (UA) (NEGATIVE) mg/dL Urine Ketones (NEGATIVE) mg/dL Urine Occult Blood (NEGATIVE) Urine Nitrite (NEGATIVE) Urine Bilirubin (NEGATIVE) Urine Ictotest Urine Urobilinogen (<2.0) EU/dL Ur Leukocyte Esterase (NEGATIVE) Urine RBC (0-2/HPF) Urine WBC (0-5/HPF) Ur Epithelial Cells (NONE-FEW) Amorphous Sediment (NEGATIVE) Urine Bacteria (NEGATIVE) H. pylori IgG Antibody (NEG) 01/14/18 01/14/18 Range/Units 13:21 14:20 WBC (4.0-11.0) K/uL RBC (4.50-5.90) M/uL Hgb (13.0-17.0) g/dL Hct (38.0-50.0) % MCV (80.0-98.0) fL MCH (27.0-32.0) pg MCHC (31.0-37.0) g/dL RDW Std Deviation (28.0-62.0) fl RDW Coeff of Marito (11.0-15.0) % Plt Count (150-400) K/uL MPV (7.40-12.00) fL Neut % (Auto) (48.0-80.0) % Lymph % (Auto) (16.0-40.0) % [place] % (Auto) (0.0-15.0) % Eos % (Auto) (0.0-7.0) % Baso % (Auto) (0.0-1.5) % Neut # (Auto) (1.4-5.7) K/uL Lymph # (Auto) (0.6-2.4) K/uL [place] # (Auto) (0.0-0.8) K/uL Eos # (Auto) (0.0-0.7) K/uL Baso # (Auto) (0.0-0.1) K/uL Nucleated RBC % /100WBC Nucleated RBCs # K/uL INR Sodium (136-148) mmol/L Potassium (3.5-5.1) mmol/L Chloride (98-107) mmol/L Carbon Dioxide (21.0-32.0) mmol/L BUN (7.0-18.0) mg/dL Creatinine (0.8-1.3) mg/dL Est Cr Clr Drug Dosing mL/min Estimated GFR (MDRD) ml/min Glucose (74-106) mg/dL Calcium (8.5-10.1) mg/dL Total Bilirubin (0.2-1.0) mg/dL AST (15-37) IU/L ALT (14-63) IU/L Alkaline Phosphatase (46-116) U/L Troponin I (0.000-0.056) ng/mL Total Protein (6.4-8.2) g/dL Albumin (3.4-5.0) g/dL Globulin (2.0-3.5) g/dL Albumin/Globulin Ratio (1.3-2.8) Amylase (25-115) U/L Lipase (73-393) U/L Urine Color YELLOW Urine Appearance CLEAR Urine pH 6.0 (5.0-8.0) Ur Specific [place] 1.020 (1.001-1.035) Urine Protein TRACE (NEGATIVE) mg/dL Urine Glucose (UA) NEGATIVE (NEGATIVE) mg/dL Urine Ketones NEGATIVE (NEGATIVE) mg/dL Urine Occult Blood NEGATIVE (NEGATIVE) Urine Nitrite NEGATIVE (NEGATIVE) Urine Bilirubin SMALL H (NEGATIVE) Urine Ictotest NEGATIVE Urine Urobilinogen 0.2 (<2.0) EU/dL Ur Leukocyte Esterase NEGATIVE (NEGATIVE) Urine RBC 0-1 (0-2/HPF) Urine WBC 0-1 (0-5/HPF) Ur Epithelial Cells RARE (NONE-FEW) Amorphous Sediment LIGHT (NEGATIVE) Urine Bacteria RARE (NEGATIVE) H. pylori IgG Antibody NEGATIVE (NEG) Result Diagrams: 01/14/18 13:21 01/14/18 13:21 Orders Last 24hrs: Active Orders 24 hr Category Date Time Status Patient Status [ADT] Stat ADT 01/14/18 16:12 Active Cardiac Monitoring [RC] . DIRECTED Care 01/14/18 13:10 Active EKG Documentation Completion [RC] STAT Care 01/14/18 13:10 Active NG [Gastrointestinal Tube Mgmt] [RC] ASDIRECTED Care 01/14/18 18:32 Active Notify Provider Consults [RC] ASDIRECTED Care 01/14/18 16:02 Active Oxygen Therapy, ED [RC] ASDIRECTED Care 01/14/18 13:10 Active Pulse Oximetry [RC] ASDIRECTED Care 01/14/18 13:10 Active Vital Signs [RC] Q4H Care 01/14/18 20:00 Active Consult to Physician [CONS] Stat Cons 01/14/18 16:02 Active Abdomen Pelvis wo Cont [CT] Stat Exams 01/14/18 14:27 Taken KUB [Abdomen 1V Flat] [CR] Stat Exams 01/14/18 16:45 Taken UA W/MICROSCOPIC [URIN] Stat Lab 01/14/18 14:20 Ordered HYDROmorphone [Dilaudid] Med 01/14/18 20:01 Active 0.5 mg IVPUSH Q3H PRN Potassium Chloride 40 meq Med 01/14/18 20:00 Active Sodium Chloride 0.9% [Normal Saline] 1,000 ml IV ASDIRECTED Sodium Chloride 0.9% [Saline Flush] Med 01/14/18 13:11 Active 10 ml FLUSH ASDIRECTED PRN Sodium Chloride 0.9% [Saline Flush] Med 01/14/18 13:11 Active 2.5 ml FLUSH ASDIRECTED PRN Nasogastric Orogastric Tube Insertion [OM.PC] Stat Oth 01/14/18 16:02 Ordered Saline Lock Insert [OM.PC] Stat Oth 01/14/18 13:10 Ordered Medication Orders Hydromorphone HCl (Dilaudid) 0.5 mg IVPUSH Q3H PRN PRN Reason: Pain (severe 7-10) Potassium Chloride 40 meq/ (Sodium Chloride) 1,020 mls @ 150 mls/hr IV ASDIRECTED TERENCE Sodium Chloride (Saline Flush) 10 ml FLUSH ASDIRECTED PRN PRN Reason: Keep Vein Open Sodium Chloride (Saline Flush) 2.5 ml FLUSH ASDIRECTED PRN PRN Reason: Keep Vein Open
[2018-01-14] MEDS: Phenol 1.4% Oral Spray 177 ML Bottle MUCMEM PRN ×2 (20:50→22:52)
[2018-01-14] MEDS ORDERED: busPIRone 5 MG Tab PO SCH (21:00)
[2018-01-14] MEDS ORDERED: HYDROmorphone 1 MG/ML Syringe IVPUSH PRN (21:48)
[2018-01-14] MEDS ORDERED: Nitroglycerin 2% Oint 1 GM UD Packet TOP PRN (22:04)
[2018-01-14] MEDS ORDERED: LORazepam 2 MG/ML SDV IVPUSH PRN (22:09)
[2018-01-14] MEDS: HYDROmorphone 1 MG/ML Syringe IVPUSH PRN (22:10)
[2018-01-14] MEDS ORDERED: Albuterol/Ipratropium 3.0-0.5 MG/3 ML Neb Soln NEB PRN (22:12)
[2018-01-14 23:19] LABS: CHLORIDE,CL 101 mmol/L (98-107); SODIUM,NA 136 mmol/L (136-148)
--- NOTE | 2018-01-15 02:39 | HP ---
DATE OF : 1960 PRIMARY CARE PHYSICIAN: None PCP HISTORY OF PRESENT ILLNESS: The patient is a 57-year-old man with a past medical history of back problems and hypertension, anxiety, hyperlipidemia, history of heart murmur, dyspnea on exertion, COPD, history of tobacco abuse, and addiction to opioids 7 years ago, and history of thyroid problems, who presented to emergency room because of chest pain that was like a pressure, it was in the middle of the chest and also was radiating in the left arm, which he felt numb and the patient thought that he is having a heart attack. The patient says that yesterday around 2:00 p.m., he ate a pizza 3 slices and afterwards, he started having abdominal pain that was stabbing, was severe and it was intermittent When he arrived home, he took tramadol and Vicodin for the pain and the pain became better and then he ate again a slice of bread with a tomato, and he woke up at night and vomited between 2:00 a.m. and 6:00 a.m. The patient says he vomited all the time and then he went to work and he was not feeling well and he vomited at work,too. He came back home and he felt his mouth was super dry and he developed chest pressure in the middle of the chest 8/10 in intensity for about an hour. In the emergency room, when he arrived, he was hypotensive with blood pressure 89/57, respiratory rate 22, oxygen by pulse oximetry 96%, and temperature 96.7, heart rate 120. The patient says he had hernia repair in 1990 , ventral hernia repaired around the umbilicus and since then, he had few episodes of abdominal pain with vomiting, the most recent one was 3 years ago. PAST MEDICAL HISTORY: The patient reports: 1. Heart murmur. 2. Hypertension. 3. Shortness of breath on exertion. 4. COPD. 5. GERD. 6. Prostate disorder with elevated PSA. The patient is supposed to follow up with Urology, Dr. Fields on February 15. 7. He has back pain. 8. Chronic fracture. 9. He has history of addiction, prior opiate addiction 7 years ago and he has thyroid problems. PAST SURGICAL HISTORY: 1. The patient has right knee surgery. 2. Right ankle surgery. ALLERGIES: The patient says that he has adverse reaction to morphine, he gets headache. SOCIAL HISTORY: He smokes half pack per day. Alcohol, couple of beers after work. No drug use. FAMILY HISTORY: His mom had kidney problems and at age of 83 and his father in 1995, he had an accident at work. REVIEW OF SYSTEMS: A 12-point review of systems is negative except as in history of present illness. PHYSICAL EXAMINATION: VITAL SIGNS: At admission as above. HEENT: His head is atraumatic and normocephalic. Pupils are equally reactive to light. NECK: Supple. No thyromegaly. No lymphadenopathy. HEART: S1, S2. Regular rhythm and rate. No murmurs. LUNGS: Clear to auscultation bilaterally. ABDOMEN: There is tenderness to palpation in the middle of the abdomen. Bowel sounds are present in all 4 quadrants. EXTREMITIES: There is no swelling. NEUROLOGIC: The patient is alert and oriented x3. There are no gross focal neurologic deficits. The patient has an NG tube. LABORATORY DATA: At admission; WBC 10.49, hemoglobin 17, hematocrit 49, and platelet count 167, neutrophils 96.1, lymphocytes 2.9. INR was 1. Sodium 133, potassium 3.1, chloride 96, CO2 of 24.4, BUN 23, creatinine 1.9, estimated creatinine clearance 45, glucose 126, calcium 9.3, total bilirubin is 2, phosphorus 5, magnesium 1.9, alkaline phosphatase 69. Troponin less than 0.05. Total protein 3.9, albumin 4, globulin 3.6, albumin-globulin ratio 1.1. Amylase 42, lipase is 151. TSH, third generation 13.71. The patient had a TSH done 7 days ago and it was 25.15. The patient had a lipid profile done on 01/05, which showed triglycerides 184, total cholesterol 330, LDL cholesterol 212, VLDL cholesterol 36, HDL 81. Amylase 42, lipase 151, PSA 5.77, free T4 was 0.43, TSH 13.71. EKG - NSR at 120 , no ST-T changes RADIOLOGIC DATA: The patient had an abdomen x-ray which showed air-fluid levels suggestive of small bowel obstruction, and then he had a CT of the abdomen done and a CT of the abdomen with impression, few prominent loops of small bowel noted. This could represent a partial obstruction versus ileus. Small bowel loops measuring up to 4.8 cm. The patient had surgery consult with Dr. White, who evaluated the patient. Dr. White was called from the emergency room. ASSESSMENT AND PLAN: 1. Partial small-bowel obstruction vs ileus The patient has an NG tube that drained about 800 mL of green fluid from the intestine since he came from [facility]. We will continue with low wall suctioning and we will put the patient n.p.o., and we will give patient IV fluids normal saline and potassium chloride 40 mEq, and we will follow, zofran iv for nausea up potassium in the morning. Potassium should be above 4 to prevent ileus secondary to hypokalemia secondary to electrolyte disturbances.For hypokalemia will supplement K with K iv 2. For chest pain r/o ACS the patient received in the emergency room, aspirin 325 mg full dose and we will follow up serial troponins q.6 hours and we will give the patient nitroglycerin paste to anterior chest wall, Dilaudid 0.5 mg q.3 hours p.r.n. for pain. 3. For elevated creatinine and also elevated hemoglobin, we will continue the patient with IV fluids. These are likely secondary to his protracted vomiting. 4. For hyperlipidemia, the patient will need to be started on atorvastatin once he is stable. 5. For elevated PSA, the patient to follow up with Urology on February 15. 6. For hypothyroidism, the patient to be continued with his home medication once his obstruction resolves and levothyroxine 50 mcg p.o. daily with breakfast. 7. For anxiety, the patient will be continued with buspirone 7.5 mg p.o. daily once his obstruction resolves when he is stable. Currently, he will be n.p.o. and no medication orally. 8. He has also hyperacidity and I would recommend to hold on his Diclofenac and he will be continued with Protonix 40 mg IV push daily. The patient received in the emergency room, pantoprazole 80 mg IV push once. The patient is also scheduled to have EGD colonoscopy with Dr. Mckinley on February 07. FABIOAL / SEYMOUR /[id number] BRIAN
[2018-01-15] MEDS: Sodium Chloride 0.9% with KCl 1,000 ML IV SCH (03:05)
[2018-01-15] MEDS: Phenol 1.4% Oral Spray 177 ML Bottle MUCMEM PRN ×4 (03:14→18:55)
[2018-01-15] MEDS: HYDROmorphone 1 MG/ML Syringe IVPUSH PRN ×2 (04:34→07:30)
--- NOTE | 2018-01-15 07:54 | HP ---
DATE OF : 1960 PRIMARY CARE PHYSICIAN: None PCP CONCERNING QUESTION: Abdominal distention. HISTORY OF PRESENT ILLNESS: The patient is a 57-year-old gentleman, and complaining of 12-hour history of acute onset of abdominal distention, and the patient denies any abdominal pain and also nausea. NG tube inserted in the emergency room and output 1200 mL. The patient remarked similar thing happened about 10 years ago and was treated just conservatively, no surgery. He had a ventral hernia repair, does not know whether there is mesh placed 20 years ago in [place], [place]. Last bowel movement was in the emergency room and currently the patient absolutely denied any abdominal pain. FAMILY HISTORY: Noncontributory. SOCIAL HISTORY: The patient is a smoker. ALLERGY TO MEDICATION: Please refer to nursing for details. PAST MEDICAL HISTORY: Denied diabetes, [place], or CVA. The patient has hypertension. PAST SURGICAL HISTORY: Ventral hernia repair, although no evidence of mesh placed. PHYSICAL EXAMINATION: GENERAL: A very pleasant, nice gentleman, smiled to the doctor. NG tube inserted, in no acute distress. HEENT: Normocephalic, atraumatic. Sclerae anicteric. LUNGS: Clear to auscultation. HEART: Regular rate and rhythm. ABDOMEN: Soft, nondistended. No pulsating tender at midline abdominal structure, nontender. Very little bowel sounds, almost none. LABORATORY DATA: White count is 10. CAT scan shows intermediate small-bowel obstruction versus ileus. Potassium is 3.1. IMPRESSION: Ileus versus obstruction. The patient has no abdominal pain. We will follow with you. NG tube, continue with low wall suction. Keep potassium above 4 to prevent chemical ileus and serial abdominal exam and n.p.o., no lovenox please. The patient is at risk for surgery. Serial compression devices given. As always thank you for your kind referral. RAMONE / SEYMOUR /[id number] BRIAN
[2018-01-15] MEDS ORDERED: Sodium Chloride 0.9% with KCl 1,000 ML IV SCH (08:30)
[2018-01-15] MEDS: Pantoprazole 40 MG Vial IVPUSH SCH (08:55)
--- NOTE | 2018-01-15 09:31 | PCM.SURGPN ---
- General Info Date of Service: 01/15/18 Functional Status: Reports: Pain Controlled - Review of Systems General: Reports: No Symptoms (no flatus or BM, ngt output 600/12 hrs) - Patient Data Vitals - Most Recent: Last Vital Signs Temp 96.7 F 01/15/18 08:00 Pulse 74 01/15/18 08:00 Resp 14 01/15/18 08:00 BP 107/67 01/15/18 08:00 Pulse Ox 95 01/15/18 08:00 Weight - Most Recent: 184 lb 12.8 oz I&O - Last 24 Hours: Intake & Output 01/14/18 01/15/18 01/15/18 22:59 06:59 14:59 Intake Total 619 993 Output Total 1150 Balance 619 -157 Lab Results Last 24 Hrs: Laboratory Results - last 24 hr 01/14/18 01/14/18 01/14/18 Range/Units 13:21 13:21 13:21 WBC 10.49 (4.0-11.0) K/uL RBC 5.06 (4.50-5.90) M/uL Hgb 17.0 (13.0-17.0) g/dL Hct 49.0 (38.0-50.0) % MCV 96.8 (80.0-98.0) fL MCH 33.6 H (27.0-32.0) pg MCHC 34.7 (31.0-37.0) g/dL RDW Std Deviation 51.3 (28.0-62.0) fl RDW Coeff of Marito 15 (11.0-15.0) % Plt Count 167 (150-400) K/uL MPV 11.20 (7.40-12.00) fL Neut % (Auto) 96.1 H (48.0-80.0) % Lymph % (Auto) 2.9 L (16.0-40.0) % White % (Auto) 0.6 (0.0-15.0) % Eos % (Auto) 0.2 (0.0-7.0) % Baso % (Auto) 0.2 (0.0-1.5) % Neut # (Auto) 10.1 H (1.4-5.7) K/uL Lymph # (Auto) 0.3 L (0.6-2.4) K/uL White # (Auto) 0.1 (0.0-0.8) K/uL Eos # (Auto) 0.0 (0.0-0.7) K/uL Baso # (Auto) 0.0 (0.0-0.1) K/uL Nucleated RBC % 0.0 /100WBC Nucleated RBCs # 0 K/uL INR 1.04 Sodium 133 L (136-148) mmol/L Potassium 3.1 L (3.5-5.1) mmol/L Chloride 96 L (98-107) mmol/L Carbon Dioxide 24.4 (21.0-32.0) mmol/L BUN 23 H (7.0-18.0) mg/dL Creatinine 1.9 H (0.8-1.3) mg/dL Est Cr Clr Drug Dosing 45.83 mL/min Estimated GFR (MDRD) 36.6 ml/min Glucose 126 H (74-106) mg/dL Hemoglobin A1c (4.5-6.2) % Calcium 9.3 (8.5-10.1) mg/dL Phosphorus (2.6-4.7) mg/dL Magnesium (1.8-2.4) mg/dL Total Bilirubin 2.0 H (0.2-1.0) mg/dL AST 31 (15-37) IU/L ALT 39 (14-63) IU/L Alkaline Phosphatase 69 (46-116) U/L Troponin I < 0.050 (0.000-0.056) ng/mL Total Protein 7.6 (6.4-8.2) g/dL Albumin 4.0 (3.4-5.0) g/dL Globulin 3.6 H (2.0-3.5) g/dL Albumin/Globulin Ratio 1.1 L (1.3-2.8) Triglycerides (0-200) mg/dL Cholesterol (50-200) mg/dL LDL Cholesterol, Calc (60-180) mg/dL VLDL Cholesterol (5-55) mg/dL HDL Cholesterol (40-60) mg/dL Cholesterol/HDL Ratio (3.3-6.0) Amylase 42 (25-115) U/L Lipase 151 (73-393) U/L TSH 3rd Generation (0.36-3.74) uIU/mL Urine Color Urine Appearance Urine pH (5.0-8.0) Ur Specific [place] (1.001-1.035) Urine Protein (NEGATIVE) mg/dL Urine Glucose (UA) (NEGATIVE) mg/dL Urine Ketones (NEGATIVE) mg/dL Urine Occult Blood (NEGATIVE) Urine Nitrite (NEGATIVE) Urine Bilirubin (NEGATIVE) Urine Ictotest Urine Urobilinogen (<2.0) EU/dL Ur Leukocyte Esterase (NEGATIVE) Urine RBC (0-2/HPF) Urine WBC (0-5/HPF) Ur Epithelial Cells (NONE-FEW) Amorphous Sediment (NEGATIVE) Urine Bacteria (NEGATIVE) H. pylori IgG Antibody (NEG) 01/14/18 01/14/18 01/14/18 Range/Units 13:21 14:20 22:15 WBC (4.0-11.0) K/uL RBC (4.50-5.90) M/uL Hgb (13.0-17.0) g/dL Hct (38.0-50.0) % MCV (80.0-98.0) fL MCH (27.0-32.0) pg MCHC (31.0-37.0) g/dL RDW Std Deviation (28.0-62.0) fl RDW Coeff of Marito (11.0-15.0) % Plt Count (150-400) K/uL MPV (7.40-12.00) fL Neut % (Auto) (48.0-80.0) % Lymph % (Auto) (16.0-40.0) % White % (Auto) (0.0-15.0) % Eos % (Auto) (0.0-7.0) % Baso % (Auto) (0.0-1.5) % Neut # (Auto) (1.4-5.7) K/uL Lymph # (Auto) (0.6-2.4) K/uL White # (Auto) (0.0-0.8) K/uL Eos # (Auto) (0.0-0.7) K/uL Baso # (Auto) (0.0-0.1) K/uL Nucleated RBC % /100WBC Nucleated RBCs # K/uL INR Sodium 136 (136-148) mmol/L Potassium 3.6 (3.5-5.1) mmol/L Chloride 101 (98-107) mmol/L Carbon Dioxide 28.7 (21.0-32.0) mmol/L BUN 19 H (7.0-18.0) mg/dL Creatinine 1.3 (0.8-1.3) mg/dL Est Cr Clr Drug Dosing 65.97 mL/min Estimated GFR (MDRD) 56.7 ml/min Glucose 117 H (74-106) mg/dL Hemoglobin A1c (4.5-6.2) % Calcium 8.8 (8.5-10.1) mg/dL Phosphorus (2.6-4.7) mg/dL Magnesium (1.8-2.4) mg/dL Total Bilirubin (0.2-1.0) mg/dL AST (15-37) IU/L ALT (14-63) IU/L Alkaline Phosphatase (46-116) U/L Troponin I < 0.050 (0.000-0.056) ng/mL Total Protein (6.4-8.2) g/dL Albumin (3.4-5.0) g/dL Globulin (2.0-3.5) g/dL Albumin/Globulin Ratio (1.3-2.8) Triglycerides (0-200) mg/dL Cholesterol (50-200) mg/dL LDL Cholesterol, Calc (60-180) mg/dL VLDL Cholesterol (5-55) mg/dL HDL Cholesterol (40-60) mg/dL Cholesterol/HDL Ratio (3.3-6.0) Amylase (25-115) U/L Lipase (73-393) U/L TSH 3rd Generation (0.36-3.74) uIU/mL Urine Color YELLOW Urine Appearance CLEAR Urine pH 6.0 (5.0-8.0) Ur Specific [place] 1.020 (1.001-1.035) Urine Protein TRACE (NEGATIVE) mg/dL Urine Glucose (UA) NEGATIVE (NEGATIVE) mg/dL Urine Ketones NEGATIVE (NEGATIVE) mg/dL Urine Occult Blood NEGATIVE (NEGATIVE) Urine Nitrite NEGATIVE (NEGATIVE) Urine Bilirubin SMALL H (NEGATIVE) Urine Ictotest NEGATIVE Urine Urobilinogen 0.2 (<2.0) EU/dL Ur Leukocyte Esterase NEGATIVE (NEGATIVE) Urine RBC 0-1 (0-2/HPF) Urine WBC 0-1 (0-5/HPF) Ur Epithelial Cells RARE (NONE-FEW) Amorphous Sediment LIGHT (NEGATIVE) Urine Bacteria RARE (NEGATIVE) H. pylori IgG Antibody NEGATIVE (NEG) 01/14/18 01/14/18 01/15/18 Range/Units 22:15 22:15 04:09 WBC (4.0-11.0) K/uL RBC (4.50-5.90) M/uL Hgb (13.0-17.0) g/dL Hct (38.0-50.0) % MCV (80.0-98.0) fL MCH (27.0-32.0) pg MCHC (31.0-37.0) g/dL RDW Std Deviation (28.0-62.0) fl RDW Coeff of [place] (11.0-15.0) % Plt Count (150-400) K/uL MPV (7.40-12.00) fL Neut % (Auto) (48.0-80.0) % Lymph % (Auto) (16.0-40.0) % White % (Auto) (0.0-15.0) % Eos % (Auto) (0.0-7.0) % Baso % (Auto) (0.0-1.5) % Neut # (Auto) (1.4-5.7) K/uL Lymph # (Auto) (0.6-2.4) K/uL White # (Auto) (0.0-0.8) K/uL Eos # (Auto) (0.0-0.7) K/uL Baso # (Auto) (0.0-0.1) K/uL Nucleated RBC % /100WBC Nucleated RBCs # K/uL INR Sodium (136-148) mmol/L Potassium (3.5-5.1) mmol/L Chloride (98-107) mmol/L Carbon Dioxide (21.0-32.0) mmol/L BUN (7.0-18.0) mg/dL Creatinine (0.8-1.3) mg/dL Est Cr Clr Drug Dosing mL/min Estimated GFR (MDRD) ml/min Glucose (74-106) mg/dL Hemoglobin A1c (4.5-6.2) % Calcium (8.5-10.1) mg/dL Phosphorus 5.0 H (2.6-4.7) mg/dL Magnesium 1.9 (1.8-2.4) mg/dL Total Bilirubin (0.2-1.0) mg/dL AST (15-37) IU/L ALT (14-63) IU/L Alkaline Phosphatase (46-116) U/L Troponin I < 0.050 (0.000-0.056) ng/mL Total Protein (6.4-8.2) g/dL Albumin (3.4-5.0) g/dL Globulin (2.0-3.5) g/dL Albumin/Globulin Ratio (1.3-2.8) Triglycerides (0-200) mg/dL Cholesterol (50-200) mg/dL LDL Cholesterol, Calc (60-180) mg/dL VLDL Cholesterol (5-55) mg/dL HDL Cholesterol (40-60) mg/dL Cholesterol/HDL Ratio (3.3-6.0) Amylase (25-115) U/L Lipase (73-393) U/L TSH 3rd Generation 13.71 H (0.36-3.74) uIU/mL Urine Color Urine Appearance Urine pH (5.0-8.0) Ur Specific [place] (1.001-1.035) Urine Protein (NEGATIVE) mg/dL Urine Glucose (UA) (NEGATIVE) mg/dL Urine Ketones (NEGATIVE) mg/dL Urine Occult Blood (NEGATIVE) Urine Nitrite (NEGATIVE) Urine Bilirubin (NEGATIVE) Urine Ictotest Urine Urobilinogen (<2.0) EU/dL Ur Leukocyte Esterase (NEGATIVE) Urine RBC (0-2/HPF) Urine WBC (0-5/HPF) Ur Epithelial Cells (NONE-FEW) Amorphous Sediment (NEGATIVE) Urine Bacteria (NEGATIVE) H. pylori IgG Antibody (NEG) 01/15/18 01/15/18 01/15/18 Range/Units 04:09 04:09 08:22 WBC 11.22 H (4.0-11.0) K/uL RBC 4.57 (4.50-5.90) M/uL Hgb 15.2 (13.0-17.0) g/dL Hct 45.1 (38.0-50.0) % MCV 98.7 H (80.0-98.0) fL MCH 33.3 H (27.0-32.0) pg MCHC 33.7 (31.0-37.0) g/dL RDW Std Deviation 53.6 (28.0-62.0) fl RDW Coeff of [place] 15 (11.0-15.0) % Plt Count 159 (150-400) K/uL MPV 11.10 (7.40-12.00) fL Neut % (Auto) 82.4 H (48.0-80.0) % Lymph % (Auto) 7.0 L (16.0-40.0) % White % (Auto) 8.2 (0.0-15.0) % Eos % (Auto) 2.0 (0.0-7.0) % Baso % (Auto) 0.4 (0.0-1.5) % Neut # (Auto) 9.2 H (1.4-5.7) K/uL Lymph # (Auto) 0.8 (0.6-2.4) K/uL White # (Auto) 0.9 H (0.0-0.8) K/uL Eos # (Auto) 0.2 (0.0-0.7) K/uL Baso # (Auto) 0.1 (0.0-0.1) K/uL Nucleated RBC % 0.0 /100WBC Nucleated RBCs # 0 K/uL INR Sodium (136-148) mmol/L Potassium (3.5-5.1) mmol/L Chloride (98-107) mmol/L Carbon Dioxide (21.0-32.0) mmol/L BUN (7.0-18.0) mg/dL Creatinine (0.8-1.3) mg/dL Est Cr Clr Drug Dosing mL/min Estimated GFR (MDRD) ml/min Glucose (74-106) mg/dL Hemoglobin A1c 6.0 (4.5-6.2) % Calcium (8.5-10.1) mg/dL Phosphorus (2.6-4.7) mg/dL Magnesium (1.8-2.4) mg/dL Total Bilirubin (0.2-1.0) mg/dL AST (15-37) IU/L ALT (14-63) IU/L Alkaline Phosphatase (46-116) U/L Troponin I (0.000-0.056) ng/mL Total Protein (6.4-8.2) g/dL Albumin (3.4-5.0) g/dL Globulin (2.0-3.5) g/dL Albumin/Globulin Ratio (1.3-2.8) Triglycerides 347 H (0-200) mg/dL Cholesterol 203 H (50-200) mg/dL LDL Cholesterol, Calc 83 (60-180) mg/dL VLDL Cholesterol 69 H (5-55) mg/dL HDL Cholesterol 51 (40-60) mg/dL Cholesterol/HDL Ratio 4.0 (3.3-6.0) Amylase (25-115) U/L Lipase (73-393) U/L TSH 3rd Generation (0.36-3.74) uIU/mL Urine Color Urine Appearance Urine pH (5.0-8.0) Ur Specific [place] (1.001-1.035) Urine Protein (NEGATIVE) mg/dL Urine Glucose (UA) (NEGATIVE) mg/dL Urine Ketones (NEGATIVE) mg/dL Urine Occult Blood (NEGATIVE) Urine Nitrite (NEGATIVE) Urine Bilirubin (NEGATIVE) Urine Ictotest Urine Urobilinogen (<2.0) EU/dL Ur Leukocyte Esterase (NEGATIVE) Urine RBC (0-2/HPF) Urine WBC (0-5/HPF) Ur Epithelial Cells (NONE-FEW) Amorphous Sediment (NEGATIVE) Urine Bacteria (NEGATIVE) H. pylori IgG Antibody (NEG) 01/15/18 Range/Units 08:22 WBC (4.0-11.0) K/uL RBC (4.50-5.90) M/uL Hgb (13.0-17.0) g/dL Hct (38.0-50.0) % MCV (80.0-98.0) fL MCH (27.0-32.0) pg MCHC (31.0-37.0) g/dL RDW Std Deviation (28.0-62.0) fl RDW Coeff of Marito (11.0-15.0) % Plt Count (150-400) K/uL MPV (7.40-12.00) fL Neut % (Auto) (48.0-80.0) % Lymph % (Auto) (16.0-40.0) % White % (Auto) (0.0-15.0) % Eos % (Auto) (0.0-7.0) % Baso % (Auto) (0.0-1.5) % Neut # (Auto) (1.4-5.7) K/uL Lymph # (Auto) (0.6-2.4) K/uL White # (Auto) (0.0-0.8) K/uL Eos # (Auto) (0.0-0.7) K/uL Baso # (Auto) (0.0-0.1) K/uL Nucleated RBC % /100WBC Nucleated RBCs # K/uL INR Sodium 138 (136-148) mmol/L Potassium 4.1 (3.5-5.1) mmol/L Chloride 105 (98-107) mmol/L Carbon Dioxide 28.5 (21.0-32.0) mmol/L BUN 18 (7.0-18.0) mg/dL Creatinine 1.3 (0.8-1.3) mg/dL Est Cr Clr Drug Dosing 65.97 mL/min Estimated GFR (MDRD) 56.7 ml/min Glucose 105 (74-106) mg/dL Hemoglobin A1c (4.5-6.2) % Calcium 8.4 L (8.5-10.1) mg/dL Phosphorus (2.6-4.7) mg/dL Magnesium 2.0 (1.8-2.4) mg/dL Total Bilirubin (0.2-1.0) mg/dL AST (15-37) IU/L ALT (14-63) IU/L Alkaline Phosphatase (46-116) U/L Troponin I (0.000-0.056) ng/mL Total Protein (6.4-8.2) g/dL Albumin (3.4-5.0) g/dL Globulin (2.0-3.5) g/dL Albumin/Globulin Ratio (1.3-2.8) Triglycerides (0-200) mg/dL Cholesterol (50-200) mg/dL LDL Cholesterol, Calc (60-180) mg/dL VLDL Cholesterol (5-55) mg/dL HDL Cholesterol (40-60) mg/dL Cholesterol/HDL Ratio (3.3-6.0) Amylase (25-115) U/L Lipase (73-393) U/L TSH 3rd Generation (0.36-3.74) uIU/mL Urine Color Urine Appearance Urine pH (5.0-8.0) Ur Specific [place] (1.001-1.035) Urine Protein (NEGATIVE) mg/dL Urine Glucose (UA) (NEGATIVE) mg/dL Urine Ketones (NEGATIVE) mg/dL Urine Occult Blood (NEGATIVE) Urine Nitrite (NEGATIVE) Urine Bilirubin (NEGATIVE) Urine Ictotest Urine Urobilinogen (<2.0) EU/dL Ur Leukocyte Esterase (NEGATIVE) Urine RBC (0-2/HPF) Urine WBC (0-5/HPF) Ur Epithelial Cells (NONE-FEW) Amorphous Sediment (NEGATIVE) Urine Bacteria (NEGATIVE) H. pylori IgG Antibody (NEG) Med Orders - Current: Current Medications Albuterol/Ipratropium (Duoneb 3.0-0.5 Mg/3 Ml) 3 ml NEB Q4HRRT PRN PRN Reason: sob , wheezing Potassium Chloride/Sodium Chloride (Normal Saline With 40 Meq Kcl) 1,000 mls @ 150 mls/hr IV ASDIRECTED [facility] Ketorolac Tromethamine (Toradol) 30 mg IVPUSH Q12H PRN PRN Reason: Pain Stop: 01/20/18 08:54 Lorazepam (Ativan) 2 mg IVPUSH Q4H PRN PRN Reason: anxiety , agitation Miscellaneous Information (Remove Patch) 1 ea TRDERM Q6H PRN PRN Reason: IF NITRO OINT APPLIED Nitroglycerin (Nitro-Bid 2%) 1 gm TOP Q6H PRN PRN Reason: Chest Pain Pantoprazole Sodium (Protonix Iv) 40 mg IVPUSH DAILY [facility] Last Admin: 01/15/18 08:55 Dose: 40 mg Phenol/Menthol (Chloraseptic Throat [place]) 0 ml MUCMEM Q2H PRN PRN Reason: Sore Throat Last Admin: 01/15/18 07:06 Dose: 1 spray Sodium Chloride (Saline Flush) 10 ml FLUSH ASDIRECTED PRN PRN Reason: Keep Vein Open Sodium Chloride (Saline Flush) 2.5 ml FLUSH ASDIRECTED PRN PRN Reason: Keep Vein Open Discontinued Medications Aspirin (Aspirin) 324 mg PO ONETIME ONE Stop: 01/14/18 13:12 Last Admin: 01/14/18 13:32 Dose: 324 mg Buspirone HCl (Buspar) 7.5 mg PO BID [place] Cyclobenzaprine HCl (Flexeril) 10 mg PO TID PRN PRN Reason: Pain Hydromorphone HCl (Dilaudid) 0.5 mg IVPUSH Q3H PRN PRN Reason: Pain Last Admin: 01/15/18 07:30 Dose: 0.5 mg Sodium Chloride (Normal Saline) 1,000 mls @ 999 mls/hr IV STAT ONE Stop: 01/14/18 14:11 Last Admin: 01/14/18 13:30 Dose: 999 mls/hr Sodium Chloride (Normal Saline) 1,000 mls @ 999 mls/hr IV STAT ONE Stop: 01/14/18 15:27 Last Admin: 01/14/18 14:30 Dose: 999 mls/hr Lactated Ringer's (Ringers, Lactated) 1,000 mls @ 150 mls/hr IV ASDIRECTED [facility] Last Admin: 01/14/18 16:05 Dose: 150 mls/hr Potassium Chloride 40 meq/ (Sodium Chloride) 1,020 mls @ 150 mls/hr IV ASDIRECTED [facility] Potassium Chloride/Sodium Chloride (Normal Saline With 40 Meq Kcl) 1,000 mls @ 150 mls/hr IV .Q6H40M [facility] Last Admin: 01/15/18 03:05 Dose: 150 mls/hr Lorazepam (Ativan) 1 mg IVPUSH ONETIME ONE Stop: 01/14/18 13:12 Last Admin: 01/14/18 13:34 Dose: 1 mg Lorazepam (Ativan) 1 mg IVPUSH ONETIME ONE Stop: 01/14/18 22:31 Last Admin: 01/14/18 22:47 Dose: 1 mg Morphine Sulfate (Morphine) 4 mg IVPUSH ONETIME ONE Stop: 01/14/18 17:11 Last Admin: 01/14/18 20:13 Dose: Not Given Ondansetron HCl (Zofran) 4 mg IVPUSH ONETIME ONE Stop: 01/14/18 13:12 Last Admin: 01/14/18 13:31 Dose: 4 mg Pantoprazole Sodium (Protonix Iv) 80 mg IVPUSH .BOLUS ONE Stop: 01/14/18 13:12 Last Admin: 01/14/18 13:33 Dose: 80 mg - Exam General: Alert, Oriented GI/Abdominal Exam: Soft, Non-Tender - Problem List Review Problem List Initiated/Reviewed/Updated: Yes - My Orders Last 24 Hours: Active Orders 24 hr Category Date Time Status Patient Status [ADT] Stat ADT 01/14/18 16:12 Active Cardiac Monitoring [RC] . DIRECTED Care 01/14/18 13:10 Active EKG 12 Lead [EKG Documentation Completion] [RC] AM Care 01/15/18 05:00 Active NG [Gastrointestinal Tube Mgmt] [RC] Q4H Care 01/14/18 18:32 Active Notify Provider Consults [RC] ASDIRECTED Care 01/14/18 16:02 Active Pulse Oximetry [RC] ASDIRECTED Care 01/14/18 13:10 Active RT Aerosol Therapy [RC] ASDIRECTED Care 01/14/18 22:13 Active Telemetry Monitoring [Cardiac Monitoring] [RC] . Care 01/14/18 22:04 Active DIRECTED Vital Signs [RC] Q4H Care 01/14/18 20:00 Active Consult to Physician [CONS] Stat Cons 01/14/18 16:02 Active NPO [Nothing Per Oral Diet] [DIET] Diet 01/15/18 Lunch Active Abdomen Pelvis wo Cont [CT] Stat Exams 01/14/18 14:27 Taken Echo 2D wo Cont [US] Urgent Exams 01/15/18 22:17 Ordered KUB [Abdomen 1V Flat] [CR] Stat Exams 01/14/18 16:45 Taken UA W/MICROSCOPIC [URIN] Stat Lab 01/14/18 14:20 Ordered Albuterol/Ipratropium [DuoNeb 3.0-0.5 MG/3 ML] Med 01/14/18 22:12 Active 3 ml NEB Q4HRRT PRN Ketorolac [Toradol] Med 01/15/18 08:53 Active 30 mg IVPUSH Q12H PRN LORazepam [Ativan] Med 01/14/18 22:09 Active 2 mg IVPUSH Q4H PRN Nitroglycerin [Nitro-Bid 2%] Med 01/14/18 22:04 Active 1 gm TOP Q6H PRN Pantoprazole [ProTONIX IV] Med 01/15/18 09:00 Active 40 mg IVPUSH DAILY Phenol [Chloraseptic Throat [place]] Med 01/14/18 20:31 Active 0 ml MUCMEM Q2H PRN Remove Patch Med 01/14/18 22:17 Active 1 ea TRDERM Q6H PRN Sodium Chloride 0.9% [Saline Flush] Med 01/14/18 13:11 Active 10 ml FLUSH ASDIRECTED PRN Sodium Chloride 0.9% [Saline Flush] Med 01/14/18 13:11 Active 2.5 ml FLUSH ASDIRECTED PRN Sodium Chloride 0.9% with KCl [Normal Saline with 40 Med 01/15/18 08:30 Active mEq KCl] 1,000 ml IV ASDIRECTED Nasogastric Orogastric Tube Insertion [OM.PC] Stat Ot 01/14/18 16:02 Ordered Saline Lock Insert [OM.PC] Stat Ot 01/14/18 13:10 Ordered Medication Orders Albuterol/Ipratropium (Duoneb 3.0-0.5 Mg/3 Ml) 3 ml NEB Q4HRRT PRN PRN Reason: sob , wheezing Potassium Chloride/Sodium Chloride (Normal Saline With 40 Meq Kcl) 1,000 mls @ 150 mls/hr IV ASDIRECTED [facility] Ketorolac Tromethamine (Toradol) 30 mg IVPUSH Q12H PRN PRN Reason: Pain Stop: 01/20/18 08:54 Lorazepam (Ativan) 2 mg IVPUSH Q4H PRN PRN Reason: anxiety , agitation Miscellaneous Information (Remove Patch) 1 ea TRDERM Q6H PRN PRN Reason: IF NITRO OINT APPLIED Nitroglycerin (Nitro-Bid 2%) 1 gm TOP Q6H PRN PRN Reason: Chest Pain Pantoprazole Sodium (Protonix Iv) 40 mg IVPUSH DAILY [facility] Last Admin: 01/15/18 08:55 Dose: 40 mg Phenol/Menthol (Chloraseptic Throat [place]) 0 ml MUCMEM Q2H PRN PRN Reason: Sore Throat Last Admin: 01/15/18 07:06 Dose: 1 spray Admin: 01/15/18 03:14 Dose: 1 spray Admin: 01/14/18 22:52 Dose: 1 spray Admin: 01/14/18 20:50 Dose: 1 spray Sodium Chloride (Saline Flush) 10 ml FLUSH ASDIRECTED PRN PRN Reason: Keep Vein Open Sodium Chloride (Saline Flush) 2.5 ml FLUSH ASDIRECTED PRN PRN Reason: Keep Vein Open - Assessment Assessment (Free Text/Narrative):: hd#1 for sbo vs ileus; wbc 11, no flatus, ngt output remains high; continue ngt decompression - Plan Plan (Free Text/Narrative):: hd#1 for sbo vs ileus; wbc 11, no flatus, ngt output remains high; continue ngt decompression
[2018-01-15] MEDS: Ketorolac 30 MG/ML SDV IVPUSH PRN ×2 (10:30→22:33)
[2018-01-15] MEDS: Sodium Chloride 0.9% 1,000 ML IV SCH ×2 (16:06→23:37)
--- NOTE | 2018-01-15 16:20 | PCM.PN ---
- General Info Date of Service: 01/15/18 - Review of Systems Systems Review Comment:: abdominal pain improving - Patient Data Vitals - Most Recent: Last Vital Signs Temp 37.0 C 01/15/18 12:00 Pulse 86 01/15/18 12:00 Resp 18 01/15/18 12:00 BP 125/81 01/15/18 12:00 Pulse Ox 94 L 01/15/18 12:00 Weight - Most Recent: 83.824 kg I&O - Last 24 Hours: Intake & Output 01/15/18 01/15/18 01/15/18 06:59 14:59 22:59 Intake Total 993 Output Total 1150 Balance -157 Lab Results Last 24 Hours: Laboratory Results - last 24 hr 01/14/18 01/14/18 01/14/18 Range/Units 14:20 22:15 22:15 WBC (4.0-11.0) K/uL RBC (4.50-5.90) M/uL Hgb (13.0-17.0) g/dL Hct (38.0-50.0) % MCV (80.0-98.0) fL MCH (27.0-32.0) pg MCHC (31.0-37.0) g/dL RDW Std Deviation (28.0-62.0) fl RDW Coeff of Marito (11.0-15.0) % Plt Count (150-400) K/uL MPV (7.40-12.00) fL Neut % (Auto) (48.0-80.0) % Lymph % (Auto) (16.0-40.0) % [place] % (Auto) (0.0-15.0) % Eos % (Auto) (0.0-7.0) % Baso % (Auto) (0.0-1.5) % Neut # (Auto) (1.4-5.7) K/uL Lymph # (Auto) (0.6-2.4) K/uL [place] # (Auto) (0.0-0.8) K/uL Eos # (Auto) (0.0-0.7) K/uL Baso # (Auto) (0.0-0.1) K/uL Nucleated RBC % /100WBC Nucleated RBCs # K/uL Sodium 136 (136-148) mmol/L Potassium 3.6 (3.5-5.1) mmol/L Chloride 101 (98-107) mmol/L Carbon Dioxide 28.7 (21.0-32.0) mmol/L BUN 19 H (7.0-18.0) mg/dL Creatinine 1.3 (0.8-1.3) mg/dL Est Cr Clr Drug Dosing 65.97 mL/min Estimated GFR (MDRD) 56.7 ml/min Glucose 117 H (74-106) mg/dL Hemoglobin A1c (4.5-6.2) % Calcium 8.8 (8.5-10.1) mg/dL Phosphorus (2.6-4.7) mg/dL Magnesium (1.8-2.4) mg/dL Troponin I < 0.050 (0.000-0.056) ng/mL Triglycerides (0-200) mg/dL Cholesterol (50-200) mg/dL LDL Cholesterol, Calc (60-180) mg/dL VLDL Cholesterol (5-55) mg/dL HDL Cholesterol (40-60) mg/dL Cholesterol/HDL Ratio (3.3-6.0) TSH 3rd Generation 13.71 H (0.36-3.74) uIU/mL Urine Color YELLOW Urine Appearance CLEAR Urine pH 6.0 (5.0-8.0) Ur Specific [place] 1.020 (1.001-1.035) Urine Protein TRACE (NEGATIVE) mg/dL Urine Glucose (UA) NEGATIVE (NEGATIVE) mg/dL Urine Ketones NEGATIVE (NEGATIVE) mg/dL Urine Occult Blood NEGATIVE (NEGATIVE) Urine Nitrite NEGATIVE (NEGATIVE) Urine Bilirubin SMALL H (NEGATIVE) Urine Ictotest NEGATIVE Urine Urobilinogen 0.2 (<2.0) EU/dL Ur Leukocyte Esterase NEGATIVE (NEGATIVE) Urine RBC 0-1 (0-2/HPF) Urine WBC 0-1 (0-5/HPF) Ur Epithelial Cells RARE (NONE-FEW) Amorphous Sediment LIGHT (NEGATIVE) Urine Bacteria RARE (NEGATIVE) 01/14/18 01/15/18 01/15/18 Range/Units 22:15 04:09 04:09 WBC (4.0-11.0) K/uL RBC (4.50-5.90) M/uL Hgb (13.0-17.0) g/dL Hct (38.0-50.0) % MCV (80.0-98.0) fL MCH (27.0-32.0) pg MCHC (31.0-37.0) g/dL RDW Std Deviation (28.0-62.0) fl RDW Coeff of Marito (11.0-15.0) % Plt Count (150-400) K/uL MPV (7.40-12.00) fL Neut % (Auto) (48.0-80.0) % Lymph % (Auto) (16.0-40.0) % [place] % (Auto) (0.0-15.0) % Eos % (Auto) (0.0-7.0) % Baso % (Auto) (0.0-1.5) % Neut # (Auto) (1.4-5.7) K/uL Lymph # (Auto) (0.6-2.4) K/uL [place] # (Auto) (0.0-0.8) K/uL Eos # (Auto) (0.0-0.7) K/uL Baso # (Auto) (0.0-0.1) K/uL Nucleated RBC % /100WBC Nucleated RBCs # K/uL Sodium (136-148) mmol/L Potassium (3.5-5.1) mmol/L Chloride (98-107) mmol/L Carbon Dioxide (21.0-32.0) mmol/L BUN (7.0-18.0) mg/dL Creatinine (0.8-1.3) mg/dL Est Cr Clr Drug Dosing mL/min Estimated GFR (MDRD) ml/min Glucose (74-106) mg/dL Hemoglobin A1c (4.5-6.2) % Calcium (8.5-10.1) mg/dL Phosphorus 5.0 H (2.6-4.7) mg/dL Magnesium 1.9 (1.8-2.4) mg/dL Troponin I < 0.050 (0.000-0.056) ng/mL Triglycerides 347 H (0-200) mg/dL Cholesterol 203 H (50-200) mg/dL LDL Cholesterol, Calc 83 (60-180) mg/dL VLDL Cholesterol 69 H (5-55) mg/dL HDL Cholesterol 51 (40-60) mg/dL Cholesterol/HDL Ratio 4.0 (3.3-6.0) TSH 3rd Generation (0.36-3.74) uIU/mL Urine Color Urine Appearance Urine pH (5.0-8.0) Ur Specific [place] (1.001-1.035) Urine Protein (NEGATIVE) mg/dL Urine Glucose (UA) (NEGATIVE) mg/dL Urine Ketones (NEGATIVE) mg/dL Urine Occult Blood (NEGATIVE) Urine Nitrite (NEGATIVE) Urine Bilirubin (NEGATIVE) Urine Ictotest Urine Urobilinogen (<2.0) EU/dL Ur Leukocyte Esterase (NEGATIVE) Urine RBC (0-2/HPF) Urine WBC (0-5/HPF) Ur Epithelial Cells (NONE-FEW) Amorphous Sediment (NEGATIVE) Urine Bacteria (NEGATIVE) 01/15/18 01/15/18 01/15/18 Range/Units 04:09 08:22 08:22 WBC 11.22 H (4.0-11.0) K/uL RBC 4.57 (4.50-5.90) M/uL Hgb 15.2 (13.0-17.0) g/dL Hct 45.1 (38.0-50.0) % MCV 98.7 H (80.0-98.0) fL MCH 33.3 H (27.0-32.0) pg MCHC 33.7 (31.0-37.0) g/dL RDW Std Deviation 53.6 (28.0-62.0) fl RDW Coeff of Marito 15 (11.0-15.0) % Plt Count 159 (150-400) K/uL MPV 11.10 (7.40-12.00) fL Neut % (Auto) 82.4 H (48.0-80.0) % Lymph % (Auto) 7.0 L (16.0-40.0) % [place] % (Auto) 8.2 (0.0-15.0) % Eos % (Auto) 2.0 (0.0-7.0) % Baso % (Auto) 0.4 (0.0-1.5) % Neut # (Auto) 9.2 H (1.4-5.7) K/uL Lymph # (Auto) 0.8 (0.6-2.4) K/uL [place] # (Auto) 0.9 H (0.0-0.8) K/uL Eos # (Auto) 0.2 (0.0-0.7) K/uL Baso # (Auto) 0.1 (0.0-0.1) K/uL Nucleated RBC % 0.0 /100WBC Nucleated RBCs # 0 K/uL Sodium 138 (136-148) mmol/L Potassium 4.1 (3.5-5.1) mmol/L Chloride 105 (98-107) mmol/L Carbon Dioxide 28.5 (21.0-32.0) mmol/L BUN 18 (7.0-18.0) mg/dL Creatinine 1.3 (0.8-1.3) mg/dL Est Cr Clr Drug Dosing 65.97 mL/min Estimated GFR (MDRD) 56.7 ml/min Glucose 105 (74-106) mg/dL Hemoglobin A1c 6.0 (4.5-6.2) % Calcium 8.4 L (8.5-10.1) mg/dL Phosphorus (2.6-4.7) mg/dL Magnesium 2.0 (1.8-2.4) mg/dL Troponin I (0.000-0.056) ng/mL Triglycerides (0-200) mg/dL Cholesterol (50-200) mg/dL LDL Cholesterol, Calc (60-180) mg/dL VLDL Cholesterol (5-55) mg/dL HDL Cholesterol (40-60) mg/dL Cholesterol/HDL Ratio (3.3-6.0) TSH 3rd Generation (0.36-3.74) uIU/mL Urine Color Urine Appearance Urine pH (5.0-8.0) Ur Specific [place] (1.001-1.035) Urine Protein (NEGATIVE) mg/dL Urine Glucose (UA) (NEGATIVE) mg/dL Urine Ketones (NEGATIVE) mg/dL Urine Occult Blood (NEGATIVE) Urine Nitrite (NEGATIVE) Urine Bilirubin (NEGATIVE) Urine Ictotest Urine Urobilinogen (<2.0) EU/dL Ur Leukocyte Esterase (NEGATIVE) Urine RBC (0-2/HPF) Urine WBC (0-5/HPF) Ur Epithelial Cells (NONE-FEW) Amorphous Sediment (NEGATIVE) Urine Bacteria (NEGATIVE) Med Orders - Current: Current Medications Albuterol/Ipratropium (Duoneb 3.0-0.5 Mg/3 Ml) 3 ml NEB Q4HRRT PRN PRN Reason: sob , wheezing Sodium Chloride (Normal Saline) 1,000 mls @ 125 mls/hr IV ASDIRECTED [facility] Last Admin: 01/15/18 16:06 Dose: 125 mls/hr Ketorolac Tromethamine (Toradol) 30 mg IVPUSH Q12H PRN PRN Reason: Pain Stop: 01/20/18 08:54 Last Admin: 01/15/18 10:30 Dose: 30 mg Lorazepam (Ativan) 2 mg IVPUSH Q4H PRN PRN Reason: anxiety , agitation Miscellaneous Information (Remove Patch) 1 ea TRDERM Q6H PRN PRN Reason: IF NITRO OINT APPLIED Nitroglycerin (Nitro-Bid 2%) 1 gm TOP Q6H PRN PRN Reason: Chest Pain Pantoprazole Sodium (Protonix Iv) 40 mg IVPUSH DAILY [facility] Last Admin: 01/15/18 08:55 Dose: 40 mg Phenol/Menthol (Chloraseptic Throat [place]) 0 ml MUCMEM Q2H PRN PRN Reason: Sore Throat Last Admin: 01/15/18 09:51 Dose: 1 spray Sodium Chloride (Saline Flush) 10 ml FLUSH ASDIRECTED PRN PRN Reason: Keep Vein Open Sodium Chloride (Saline Flush) 2.5 ml FLUSH ASDIRECTED PRN PRN Reason: Keep Vein Open Discontinued Medications Aspirin (Aspirin) 324 mg PO ONETIME ONE Stop: 01/14/18 13:12 Last Admin: 01/14/18 13:32 Dose: 324 mg Buspirone HCl (Buspar) 7.5 mg PO BID [facility] Cyclobenzaprine HCl (Flexeril) 10 mg PO TID PRN PRN Reason: Pain Hydromorphone HCl (Dilaudid) 0.5 mg IVPUSH Q3H PRN PRN Reason: Pain Last Admin: 01/15/18 07:30 Dose: 0.5 mg Sodium Chloride (Normal Saline) 1,000 mls @ 999 mls/hr IV STAT ONE Stop: 01/14/18 14:11 Last Admin: 01/14/18 13:30 Dose: 999 mls/hr Sodium Chloride (Normal Saline) 1,000 mls @ 999 mls/hr IV STAT ONE Stop: 01/14/18 15:27 Last Admin: 01/14/18 14:30 Dose: 999 mls/hr Lactated Ringer's (Ringers, Lactated) 1,000 mls @ 150 mls/hr IV ASDIRECTED [facility] Last Admin: 01/14/18 16:05 Dose: 150 mls/hr Potassium Chloride 40 meq/ (Sodium Chloride) 1,020 mls @ 150 mls/hr IV ASDIRECTED [facility] Potassium Chloride/Sodium Chloride (Normal Saline With 40 Meq Kcl) 1,000 mls @ 150 mls/hr IV .Q6H40M [facility] Last Admin: 01/15/18 03:05 Dose: 150 mls/hr Potassium Chloride/Sodium Chloride (Normal Saline With 40 Meq Kcl) 1,000 mls @ 150 mls/hr IV ASDIRECTED [facility] Last Admin: 01/15/18 09:50 Dose: 150 mls/hr Lorazepam (Ativan) 1 mg IVPUSH ONETIME ONE Stop: 01/14/18 13:12 Last Admin: 01/14/18 13:34 Dose: 1 mg Lorazepam (Ativan) 1 mg IVPUSH ONETIME ONE Stop: 01/14/18 22:31 Last Admin: 01/14/18 22:47 Dose: 1 mg Morphine Sulfate (Morphine) 4 mg IVPUSH ONETIME ONE Stop: 01/14/18 17:11 Last Admin: 01/14/18 20:13 Dose: Not Given Ondansetron HCl (Zofran) 4 mg IVPUSH ONETIME ONE Stop: 01/14/18 13:12 Last Admin: 01/14/18 13:31 Dose: 4 mg Pantoprazole Sodium (Protonix Iv) 80 mg IVPUSH .BOLUS ONE Stop: 01/14/18 13:12 Last Admin: 01/14/18 13:33 Dose: 80 mg - Exam General: Alert, Oriented Lungs: Clear to Auscultation, Normal Respiratory Effort Cardiovascular: Regular Rate, Regular Rhythm GI/Abdominal Exam: Non-Tender, No Distention Extremities: Non-Tender, No Pedal Edema Skin: Warm, Dry, Intact Neurological: No New Focal Deficit - Problem List Review Problem List Initiated/Reviewed/Updated: Yes - My Orders Last 24 Hours: My Active Orders 01/15/18 15:01 Abdomen 1V Flat [CR] Routine 01/15/18 16:15 Sodium Chloride 0.9% [Normal Saline] 1,000 ml IV ASDIRECTED 01/15/18 Lunch NPO [Nothing Per Oral Diet] [DIET] 01/16/18 05:11 BASIC METABOLIC PANEL,BMP [CHEM] AM CBC WITH AUTO DIFF [HEME] AM 01/17/18 05:11 BASIC METABOLIC PANEL,BMP [CHEM] AM CBC WITH AUTO DIFF [HEME] AM 01/18/18 05:11 BASIC METABOLIC PANEL,BMP [CHEM] AM CBC WITH AUTO DIFF [HEME] AM - Plan Plan:: 57 yo male admitted with small bowel obstruction. Will continue NG tube, IV fluids and antiemetics.
[2018-01-15] MEDS: LORazepam 2 MG/ML SDV IVPUSH PRN ×2 (16:32→22:32)
[2018-01-16] MEDS: LORazepam 2 MG/ML SDV IVPUSH PRN (05:41)
[2018-01-16 06:23] LABS: CHLORIDE,CL 107 mmol/L (98-107); SODIUM,NA 139 mmol/L (136-148)
[2018-01-16] MEDS: Sodium Chloride 0.9% 1,000 ML IV SCH (08:04)
[2018-01-16] MEDS: Pantoprazole 40 MG Vial IVPUSH SCH (08:05)
[2018-01-16] MEDS: Phenol 1.4% Oral Spray 177 ML Bottle MUCMEM PRN ×2 (08:07→10:46)
[2018-01-16] MEDS: Ketorolac 30 MG/ML SDV IVPUSH PRN (10:44)
--- NOTE | 2018-01-16 10:54 | PCM.PN ---
- General Info Date of Service: 01/16/18 - Review of Systems Systems Review Comment:: abdominal pain controlled - Patient Data Vitals - Most Recent: Last Vital Signs Temp 36.4 C 01/16/18 08:11 Pulse 90 01/16/18 08:11 Resp 18 01/16/18 08:11 BP 142/94 H 01/16/18 08:11 Pulse Ox 99 01/16/18 04:00 Weight - Most Recent: 84.912 kg I&O - Last 24 Hours: Intake & Output 01/15/18 01/16/18 01/16/18 22:59 06:59 14:59 Intake Total 1945 1000 Output Total 450 700 Balance 1495 300 Lab Results Last 24 Hours: Laboratory Results - last 24 hr 01/16/18 01/16/18 Range/Units 05:49 05:49 WBC 8.43 (4.0-11.0) K/uL RBC 4.50 (4.50-5.90) M/uL Hgb 14.9 (13.0-17.0) g/dL Hct 45.0 (38.0-50.0) % MCV 100.0 H (80.0-98.0) fL MCH 33.1 H (27.0-32.0) pg MCHC 33.1 (31.0-37.0) g/dL RDW Std Deviation 54.0 (28.0-62.0) fl RDW Coeff of Marito 15 (11.0-15.0) % Plt Count 145 L (150-400) K/uL MPV 10.90 (7.40-12.00) fL Neut % (Auto) 77.6 (48.0-80.0) % Lymph % (Auto) 8.7 L (16.0-40.0) % [place] % (Auto) 10.8 (0.0-15.0) % Eos % (Auto) 2.3 (0.0-7.0) % Baso % (Auto) 0.6 (0.0-1.5) % Neut # (Auto) 6.6 H (1.4-5.7) K/uL Lymph # (Auto) 0.7 (0.6-2.4) K/uL [place] # (Auto) 0.9 H (0.0-0.8) K/uL Eos # (Auto) 0.2 (0.0-0.7) K/uL Baso # (Auto) 0.1 (0.0-0.1) K/uL Nucleated RBC % 0.0 /100WBC Nucleated RBCs # 0 K/uL Sodium 139 (136-148) mmol/L Potassium 3.7 (3.5-5.1) mmol/L Chloride 107 (98-107) mmol/L Carbon Dioxide 24.0 (21.0-32.0) mmol/L BUN 17 (7.0-18.0) mg/dL Creatinine 1.0 (0.8-1.3) mg/dL Est Cr Clr Drug Dosing 85.76 mL/min Estimated GFR (MDRD) > 60.0 ml/min Glucose 84 (74-106) mg/dL Calcium 8.1 L (8.5-10.1) mg/dL Med Orders - Current: Current Medications Albuterol/Ipratropium (Duoneb 3.0-0.5 Mg/3 Ml) 3 ml NEB Q4HRRT PRN PRN Reason: sob , wheezing Sodium Chloride (Normal Saline) 1,000 mls @ 125 mls/hr IV ASDIRECTED [facility] Last Admin: 01/16/18 08:04 Dose: 125 mls/hr Ketorolac Tromethamine (Toradol) 30 mg IVPUSH Q12H PRN PRN Reason: Pain Stop: 01/20/18 08:54 Last Admin: 01/16/18 10:44 Dose: 30 mg Lorazepam (Ativan) 1 mg IVPUSH Q6H PRN PRN Reason: Anxiety Last Admin: 01/16/18 05:41 Dose: 1 mg Miscellaneous Information (Remove Patch) 1 ea TRDERM Q6H PRN PRN Reason: IF NITRO OINT APPLIED Nitroglycerin (Nitro-Bid 2%) 1 gm TOP Q6H PRN PRN Reason: Chest Pain Pantoprazole Sodium (Protonix Iv) 40 mg IVPUSH DAILY [facility] Last Admin: 01/16/18 08:05 Dose: 40 mg Phenol/Menthol (Chloraseptic Throat [place]) 0 ml MUCMEM Q2H PRN PRN Reason: Sore Throat Last Admin: 01/16/18 10:46 Dose: 1 spray Sodium Chloride (Saline Flush) 10 ml FLUSH ASDIRECTED PRN PRN Reason: Keep Vein Open Sodium Chloride (Saline Flush) 2.5 ml FLUSH ASDIRECTED PRN PRN Reason: Keep Vein Open Discontinued Medications Aspirin (Aspirin) 324 mg PO ONETIME ONE Stop: 01/14/18 13:12 Last Admin: 01/14/18 13:32 Dose: 324 mg Buspirone HCl (Buspar) 7.5 mg PO BID [facility] Cyclobenzaprine HCl (Flexeril) 10 mg PO TID PRN PRN Reason: Pain Hydromorphone HCl (Dilaudid) 0.5 mg IVPUSH Q3H PRN PRN Reason: Pain Last Admin: 01/15/18 07:30 Dose: 0.5 mg Sodium Chloride (Normal Saline) 1,000 mls @ 999 mls/hr IV STAT ONE Stop: 01/14/18 14:11 Last Admin: 01/14/18 13:30 Dose: 999 mls/hr Sodium Chloride (Normal Saline) 1,000 mls @ 999 mls/hr IV STAT ONE Stop: 01/14/18 15:27 Last Admin: 01/14/18 14:30 Dose: 999 mls/hr Lactated Ringer's (Ringers, Lactated) 1,000 mls @ 150 mls/hr IV ASDIRECTED [facility] Last Admin: 01/14/18 16:05 Dose: 150 mls/hr Potassium Chloride 40 meq/ (Sodium Chloride) 1,020 mls @ 150 mls/hr IV ASDIRECTED [facility] Potassium Chloride/Sodium Chloride (Normal Saline With 40 Meq Kcl) 1,000 mls @ 150 mls/hr IV .Q6H40M [facility] Last Admin: 01/15/18 03:05 Dose: 150 mls/hr Potassium Chloride/Sodium Chloride (Normal Saline With 40 Meq Kcl) 1,000 mls @ 150 mls/hr IV ASDIRECTED [facility] Last Admin: 01/15/18 09:50 Dose: 150 mls/hr Lorazepam (Ativan) 1 mg IVPUSH ONETIME ONE Stop: 01/14/18 13:12 Last Admin: 01/14/18 13:34 Dose: 1 mg Lorazepam (Ativan) 2 mg IVPUSH Q4H PRN PRN Reason: anxiety , agitation Lorazepam (Ativan) 1 mg IVPUSH ONETIME ONE Stop: 01/14/18 22:31 Last Admin: 01/14/18 22:47 Dose: 1 mg Morphine Sulfate (Morphine) 4 mg IVPUSH ONETIME ONE Stop: 01/14/18 17:11 Last Admin: 01/14/18 20:13 Dose: Not Given Ondansetron HCl (Zofran) 4 mg IVPUSH ONETIME ONE Stop: 01/14/18 13:12 Last Admin: 01/14/18 13:31 Dose: 4 mg Pantoprazole Sodium (Protonix Iv) 80 mg IVPUSH .BOLUS ONE Stop: 01/14/18 13:12 Last Admin: 01/14/18 13:33 Dose: 80 mg - Exam General: Alert, Oriented Lungs: Clear to Auscultation, Normal Respiratory Effort Cardiovascular: Regular Rate, Regular Rhythm GI/Abdominal Exam: Soft, Non-Tender, No Distention Extremities: Non-Tender, No Pedal Edema - Problem List Review Problem List Initiated/Reviewed/Updated: Yes - My Orders Last 24 Hours: My Active Orders 01/15/18 15:01 Abdomen 1V Flat [CR] Routine 01/15/18 16:15 Sodium Chloride 0.9% [Normal Saline] 1,000 ml IV ASDIRECTED 01/15/18 16:18 LORazepam [Ativan] 1 mg IVPUSH Q6H PRN 01/15/18 Lunch NPO [Nothing Per Oral Diet] [DIET] 01/17/18 05:11 BASIC METABOLIC PANEL,BMP [CHEM] AM CBC WITH AUTO DIFF [HEME] AM 01/18/18 05:11 BASIC METABOLIC PANEL,BMP [CHEM] AM CBC WITH AUTO DIFF [HEME] AM - Plan Plan:: 57 yo male admitted with small bowel obstruction. Will continue NG tube, IV fluids and antiemetics. Dr. Brannon has been consulted.
--- NOTE | 2018-01-16 12:55 | PCM.SURGPN ---
- General Info Date of Service: 01/16/18 Functional Status: Reports: Pain Controlled - Review of Systems General: Reports: No Symptoms Gastrointestinal: Reports: No Symptoms (passing flatus) - Patient Data Vitals - Most Recent: Last Vital Signs Temp 96.4 F 01/16/18 12:00 Pulse 79 01/16/18 12:00 Resp 20 01/16/18 12:00 BP 150/89 H 01/16/18 12:00 Pulse Ox 99 01/16/18 12:00 Weight - Most Recent: 187 lb 3.2 oz I&O - Last 24 Hours: Intake & Output 01/15/18 01/16/18 01/16/18 22:59 06:59 14:59 Intake Total 1945 1000 Output Total 450 700 Balance 1495 300 Lab Results Last 24 Hrs: Laboratory Results - last 24 hr 01/16/18 01/16/18 Range/Units 05:49 05:49 WBC 8.43 (4.0-11.0) K/uL RBC 4.50 (4.50-5.90) M/uL Hgb 14.9 (13.0-17.0) g/dL Hct 45.0 (38.0-50.0) % MCV 100.0 H (80.0-98.0) fL MCH 33.1 H (27.0-32.0) pg MCHC 33.1 (31.0-37.0) g/dL RDW Std Deviation 54.0 (28.0-62.0) fl RDW Coeff of Marito 15 (11.0-15.0) % Plt Count 145 L (150-400) K/uL MPV 10.90 (7.40-12.00) fL Neut % (Auto) 77.6 (48.0-80.0) % Lymph % (Auto) 8.7 L (16.0-40.0) % [place] % (Auto) 10.8 (0.0-15.0) % Eos % (Auto) 2.3 (0.0-7.0) % Baso % (Auto) 0.6 (0.0-1.5) % Neut # (Auto) 6.6 H (1.4-5.7) K/uL Lymph # (Auto) 0.7 (0.6-2.4) K/uL [place] # (Auto) 0.9 H (0.0-0.8) K/uL Eos # (Auto) 0.2 (0.0-0.7) K/uL Baso # (Auto) 0.1 (0.0-0.1) K/uL Nucleated RBC % 0.0 /100WBC Nucleated RBCs # 0 K/uL Sodium 139 (136-148) mmol/L Potassium 3.7 (3.5-5.1) mmol/L Chloride 107 (98-107) mmol/L Carbon Dioxide 24.0 (21.0-32.0) mmol/L BUN 17 (7.0-18.0) mg/dL Creatinine 1.0 (0.8-1.3) mg/dL Est Cr Clr Drug Dosing 85.76 mL/min Estimated GFR (MDRD) > 60.0 ml/min Glucose 84 (74-106) mg/dL Calcium 8.1 L (8.5-10.1) mg/dL Med Orders - Current: Current Medications Albuterol/Ipratropium (Duoneb 3.0-0.5 Mg/3 Ml) 3 ml NEB Q4HRRT PRN PRN Reason: sob , wheezing Sodium Chloride (Normal Saline) 1,000 mls @ 125 mls/hr IV ASDIRECTED [facility] Last Admin: 01/16/18 08:04 Dose: 125 mls/hr Ketorolac Tromethamine (Toradol) 30 mg IVPUSH Q12H PRN PRN Reason: Pain Stop: 01/20/18 08:54 Last Admin: 01/16/18 10:44 Dose: 30 mg Lorazepam (Ativan) 1 mg IVPUSH Q6H PRN PRN Reason: Anxiety Last Admin: 01/16/18 05:41 Dose: 1 mg Miscellaneous Information (Remove Patch) 1 ea TRDERM Q6H PRN PRN Reason: IF NITRO OINT APPLIED Nitroglycerin (Nitro-Bid 2%) 1 gm TOP Q6H PRN PRN Reason: Chest Pain Pantoprazole Sodium (Protonix Iv) 40 mg IVPUSH DAILY [facility] Last Admin: 01/16/18 08:05 Dose: 40 mg Phenol/Menthol (Chloraseptic Throat [place]) 0 ml MUCMEM Q2H PRN PRN Reason: Sore Throat Last Admin: 01/16/18 10:46 Dose: 1 spray Sodium Chloride (Saline Flush) 10 ml FLUSH ASDIRECTED PRN PRN Reason: Keep Vein Open Sodium Chloride (Saline Flush) 2.5 ml FLUSH ASDIRECTED PRN PRN Reason: Keep Vein Open Discontinued Medications Aspirin (Aspirin) 324 mg PO ONETIME ONE Stop: 01/14/18 13:12 Last Admin: 01/14/18 13:32 Dose: 324 mg Buspirone HCl (Buspar) 7.5 mg PO BID [facility] Cyclobenzaprine HCl (Flexeril) 10 mg PO TID PRN PRN Reason: Pain Hydromorphone HCl (Dilaudid) 0.5 mg IVPUSH Q3H PRN PRN Reason: Pain Last Admin: 01/15/18 07:30 Dose: 0.5 mg Sodium Chloride (Normal Saline) 1,000 mls @ 999 mls/hr IV STAT ONE Stop: 01/14/18 14:11 Last Admin: 01/14/18 13:30 Dose: 999 mls/hr Sodium Chloride (Normal Saline) 1,000 mls @ 999 mls/hr IV STAT ONE Stop: 01/14/18 15:27 Last Admin: 01/14/18 14:30 Dose: 999 mls/hr Lactated Ringer's (Ringers, Lactated) 1,000 mls @ 150 mls/hr IV ASDIRECTED [facility] Last Admin: 01/14/18 16:05 Dose: 150 mls/hr Potassium Chloride 40 meq/ (Sodium Chloride) 1,020 mls @ 150 mls/hr IV ASDIRECTED [facility] Potassium Chloride/Sodium Chloride (Normal Saline With 40 Meq Kcl) 1,000 mls @ 150 mls/hr IV .[id number] [facility] Last Admin: 01/15/18 03:05 Dose: 150 mls/hr Potassium Chloride/Sodium Chloride (Normal Saline With 40 Meq Kcl) 1,000 mls @ 150 mls/hr IV ASDIRECTED [facility] Last Admin: 01/15/18 09:50 Dose: 150 mls/hr Lorazepam (Ativan) 1 mg IVPUSH ONETIME ONE Stop: 01/14/18 13:12 Last Admin: 01/14/18 13:34 Dose: 1 mg Lorazepam (Ativan) 2 mg IVPUSH Q4H PRN PRN Reason: anxiety , agitation Lorazepam (Ativan) 1 mg IVPUSH ONETIME ONE Stop: 01/14/18 22:31 Last Admin: 01/14/18 22:47 Dose: 1 mg Morphine Sulfate (Morphine) 4 mg IVPUSH ONETIME ONE Stop: 01/14/18 17:11 Last Admin: 01/14/18 20:13 Dose: Not Given Ondansetron HCl (Zofran) 4 mg IVPUSH ONETIME ONE Stop: 01/14/18 13:12 Last Admin: 01/14/18 13:31 Dose: 4 mg Pantoprazole Sodium (Protonix Iv) 80 mg IVPUSH .BOLUS ONE Stop: 01/14/18 13:12 Last Admin: 01/14/18 13:33 Dose: 80 mg - Exam General: Alert, Oriented GI/Abdominal Exam: Normal Bowel Sounds, Soft, Non-Tender - Problem List Review Problem List Initiated/Reviewed/Updated: Yes - My Orders Last 24 Hours: Active Orders 24 hr Category Date Time Status Clear Liquid Diet [DIET] Diet 01/16/18 Lunch Active Abdomen 1V Flat [CR] Routine Exams 01/15/18 15:01 Taken Echo 2D wo Cont [US] Urgent Exams 01/15/18 22:17 Ordered BASIC METABOLIC PANEL,BMP [CHEM] AM Lab 01/17/18 05:11 Ordered BASIC METABOLIC PANEL,BMP [CHEM] AM Lab 01/18/18 05:11 Ordered CBC WITH AUTO DIFF [HEME] AM Lab 01/17/18 05:11 Ordered CBC WITH AUTO DIFF [HEME] AM Lab 01/18/18 05:11 Ordered LORazepam [Ativan] Med 01/15/18 16:18 Active 1 mg IVPUSH Q6H PRN Sodium Chloride 0.9% [Normal Saline] 1,000 ml Med 01/15/18 16:15 Active IV ASDIRECTED Medication Orders Albuterol/Ipratropium (Duoneb 3.0-0.5 Mg/3 Ml) 3 ml NEB Q4HRRT PRN PRN Reason: sob , wheezing Sodium Chloride (Normal Saline) 1,000 mls @ 125 mls/hr IV ASDIRECTED [facility] Last Admin: 01/16/18 08:04 Dose: 125 mls/hr Infusion: 01/16/18 07:37 Dose: 125 mls/hr Admin: 01/15/18 23:37 Dose: 125 mls/hr Infusion: 01/15/18 23:37 Dose: 125 mls/hr Admin: 01/15/18 16:06 Dose: 125 mls/hr Ketorolac Tromethamine (Toradol) 30 mg IVPUSH Q12H PRN PRN Reason: Pain Stop: 01/20/18 08:54 Last Admin: 01/16/18 10:44 Dose: 30 mg Admin: 01/15/18 22:33 Dose: 30 mg Admin: 01/15/18 10:30 Dose: 30 mg Lorazepam (Ativan) 1 mg IVPUSH Q6H PRN PRN Reason: Anxiety Last Admin: 01/16/18 05:41 Dose: 1 mg Admin: 01/15/18 22:32 Dose: 1 mg Admin: 01/15/18 16:32 Dose: 1 mg Miscellaneous Information (Remove Patch) 1 ea TRDERM Q6H PRN PRN Reason: IF NITRO OINT APPLIED Nitroglycerin (Nitro-Bid 2%) 1 gm TOP Q6H PRN PRN Reason: Chest Pain Pantoprazole Sodium (Protonix Iv) 40 mg IVPUSH DAILY [facility] Last Admin: 01/16/18 08:05 Dose: 40 mg Admin: 01/15/18 08:55 Dose: 40 mg Phenol/Menthol (Chloraseptic Throat [place]) 0 ml MUCMEM Q2H PRN PRN Reason: Sore Throat Last Admin: 01/16/18 10:46 Dose: 1 spray Admin: 01/16/18 08:07 Dose: 1 spray Admin: 01/15/18 18:55 Dose: 1 spray Admin: 01/15/18 09:51 Dose: 1 spray Admin: 01/15/18 07:06 Dose: 1 spray Admin: 01/15/18 03:14 Dose: 1 spray Admin: 01/14/18 22:52 Dose: 1 spray Admin: 01/14/18 20:50 Dose: 1 spray Sodium Chloride (Saline Flush) 10 ml FLUSH ASDIRECTED PRN PRN Reason: Keep Vein Open Sodium Chloride (Saline Flush) 2.5 ml FLUSH ASDIRECTED PRN PRN Reason: Keep Vein Open - Assessment Assessment (Free Text/Narrative):: resolving ileus, clamp ngt X 2 hrs, if tolerate, dc ngt to clear liquid; if tolerate; home on clear liquid X 3 days; fu 1 - 2 wks - Plan Plan (Free Text/Narrative):: resolving ileus, clamp ngt X 2 hrs, if tolerate, dc ngt to clear liquid; if tolerate; home on clear liquid X 3 days; fu 1 - 2 wks
--- NOTE | 2018-01-16 16:52 | PCM.DCSUM1 ---
Discharge Summary - Discharge Data Discharge Date: 01/16/18 Discharge Disposition: Home, Self-Care 01 Condition: Stable - Patient Summary/Data Consults: Consultations 01/14/18 16:02 Consult to Physician [CONS] Stat Hospital Course: 57 yo male who was admitted for small bowel obstruction. He presented with abdominal pain, nausea and vomiting. CT scan of abdomen showed intermediate small bowel obstruction vs ileus. Dr. Brannon was consulted. He was treated with IV fluids, NG tube decompression, ativan, and antiemetics. His symptoms did improved. NG tube was pulled and he tolerated a clear liquid diet. He was discharged home and instructed on a clear liquid diet for three days and follow up with Dr. Brannon in clinic. - Patient Instructions Diet: Clear Liquid Diet - Discharge Plan Home Medications: Home Meds Cyclobenzaprine [Flexeril] 10 mg PO TID PRN #21 tab 12/20/17 [Rx] Diclofenac Sodium [Voltaren] 75 mg PO BIDMEALS PRN #30 tab.cr 12/20/17 [Rx] Omeprazole 1 tab PO DAILY 12/20/17 [History] Glycopyrrolate/Formoterol Fum [Bevespi Aerosphere Inhaler] 1 puff INH BID PRN [History] Losartan [Cozaar] 50 mg PO DAILY 01/07/18 [History] busPIRone HCl [Buspirone HCl] 7.5 mg PO BID 01/07/18 [History] hydroCHLOROthiazide [Hydrochlorothiazide] 12.5 mg PO DAILY 01/07/18 [History] Levothyroxine [Synthroid] 50 mcg PO ACBREAKFAST 01/14/18 [History] atorvaSTATin [Lipitor] 20 mg PO BEDTIME 01/14/18 [History] Patient Handouts: Small Bowel Obstruction, [id number] Referrals: Twin Brannon MD [Physician] - - Patient Data Vitals - Most Recent: Last Vital Signs Temp 35.8 C 01/16/18 12:00 Pulse 79 01/16/18 12:00 Resp 20 01/16/18 12:00 BP 150/89 H 01/16/18 12:00 Pulse Ox 99 01/16/18 12:00 Weight - Most Recent: 84.912 kg I&O - Last 24 hours: Intake & Output 01/16/18 01/16/1818 06:59 14:59 22:59 Intake Total 1000 8282 Output Total 700 600 Balance 300 1375 Lab Results - Last 24 hrs: Laboratory Results - last 24 hr 01/16/18 01/16/18 Range/Units 05:49 05:49 WBC 8.43 (4.0-11.0) K/uL RBC 4.50 (4.50-5.90) M/uL Hgb 14.9 (13.0-17.0) g/dL Hct 45.0 (38.0-50.0) % MCV 100.0 H (80.0-98.0) fL MCH 33.1 H (27.0-32.0) pg MCHC 33.1 (31.0-37.0) g/dL RDW Std Deviation 54.0 (28.0-62.0) fl RDW Coeff of Marito 15 (11.0-15.0) % Plt Count 145 L (150-400) K/uL MPV 10.90 (7.40-12.00) fL Neut % (Auto) 77.6 (48.0-80.0) % Lymph % (Auto) 8.7 L (16.0-40.0) % [place] % (Auto) 10.8 (0.0-15.0) % Eos % (Auto) 2.3 (0.0-7.0) % Baso % (Auto) 0.6 (0.0-1.5) % Neut # (Auto) 6.6 H (1.4-5.7) K/uL Lymph # (Auto) 0.7 (0.6-2.4) K/uL [place] # (Auto) 0.9 H (0.0-0.8) K/uL Eos # (Auto) 0.2 (0.0-0.7) K/uL Baso # (Auto) 0.1 (0.0-0.1) K/uL Nucleated RBC % 0.0 /100WBC Nucleated RBCs # 0 K/uL Sodium 139 (136-148) mmol/L Potassium 3.7 (3.5-5.1) mmol/L Chloride 107 (98-107) mmol/L Carbon Dioxide 24.0 (21.0-32.0) mmol/L BUN 17 (7.0-18.0) mg/dL Creatinine 1.0 (0.8-1.3) mg/dL Est Cr Clr Drug Dosing 85.76 mL/min Estimated GFR (MDRD) > 60.0 ml/min Glucose 84 (74-106) mg/dL Calcium 8.1 L (8.5-10.1) mg/dL Med Orders - Current: Current Medications Discontinued Medications Albuterol/Ipratropium (Duoneb 3.0-0.5 Mg/3 Ml) 3 ml NEB Q4HRRT PRN PRN Reason: sob , wheezing Aspirin (Aspirin) 324 mg PO ONETIME ONE Stop: 01/14/18 13:12 Last Admin: 01/14/18 13:32 Dose: 324 mg Buspirone HCl (Buspar) 7.5 mg PO BID TERENCE Cyclobenzaprine HCl (Flexeril) 10 mg PO TID PRN PRN Reason: Pain Hydromorphone HCl (Dilaudid) 0.5 mg IVPUSH Q3H PRN PRN Reason: Pain Last Admin: 01/15/18 07:30 Dose: 0.5 mg Sodium Chloride (Normal Saline) 1,000 mls @ 999 mls/hr IV STAT ONE Stop: 01/14/18 14:11 Last Admin: 01/14/18 13:30 Dose: 999 mls/hr Sodium Chloride (Normal Saline) 1,000 mls @ 999 mls/hr IV STAT ONE Stop: 01/14/18 15:27 Last Admin: 01/14/18 14:30 Dose: 999 mls/hr Lactated Ringer's (Ringers, Lactated) 1,000 mls @ 150 mls/hr IV ASDIRECTED [facility] Last Admin: 01/14/18 16:05 Dose: 150 mls/hr Potassium Chloride 40 meq/ (Sodium Chloride) 1,020 mls @ 150 mls/hr IV ASDIRECTED [facility] Potassium Chloride/Sodium Chloride (Normal Saline With 40 Meq Kcl) 1,000 mls @ 150 mls/hr IV .Q6H40M [facility] Last Admin: 01/15/18 03:05 Dose: 150 mls/hr Potassium Chloride/Sodium Chloride (Normal Saline With 40 Meq Kcl) 1,000 mls @ 150 mls/hr IV ASDIRECTED [facility] Last Admin: 09/01/18 09:50 Dose: 150 mls/hr Sodium Chloride (Normal Saline) 1,000 mls @ 125 mls/hr IV ASDIRECTED [facility] Last Admin: 01/16/18 08:04 Dose: 125 mls/hr Ketorolac Tromethamine (Toradol) 30 mg IVPUSH Q12H PRN PRN Reason: Pain Stop: 01/20/18 08:54 Last Admin: 01/16/18 10:44 Dose: 30 mg Lorazepam (Ativan) 1 mg IVPUSH ONETIME ONE Stop: 01/14/18 13:12 Last Admin: 01/14/18 13:34 Dose: 1 mg Lorazepam (Ativan) 2 mg IVPUSH Q4H PRN PRN Reason: anxiety , agitation Lorazepam (Ativan) 1 mg IVPUSH ONETIME ONE Stop: 01/14/18 22:31 Last Admin: 01/14/18 22:47 Dose: 1 mg Lorazepam (Ativan) 1 mg IVPUSH Q6H PRN PRN Reason: Anxiety Last Admin: 01/16/18 05:41 Dose: 1 mg Miscellaneous Information (Remove Patch) 1 ea TRDERM Q6H PRN PRN Reason: IF NITRO OINT APPLIED Morphine Sulfate (Morphine) 4 mg IVPUSH ONETIME ONE Stop: 01/14/18 17:11 Last Admin: 01/14/18 20:13 Dose: Not Given Nitroglycerin (Nitro-Bid 2%) 1 gm TOP Q6H PRN PRN Reason: Chest Pain Ondansetron HCl (Zofran) 4 mg IVPUSH ONETIME ONE Stop: 01/14/18 13:12 Last Admin: 01/14/18 13:31 Dose: 4 mg Pantoprazole Sodium (Protonix Iv) 80 mg IVPUSH .BOLUS ONE Stop: 01/14/18 13:12 Last Admin: 01/14/18 13:33 Dose: 80 mg Pantoprazole Sodium (Protonix Iv) 40 mg IVPUSH DAILY [facility] Last Admin: 01/16/18 08:05 Dose: 40 mg Phenol/Menthol (Chloraseptic Throat [place]) 0 ml MUCMEM Q2H PRN PRN Reason: Sore Throat Last Admin: 01/16/18 10:46 Dose: 1 spray Sodium Chloride (Saline Flush) 10 ml FLUSH ASDIRECTED PRN PRN Reason: Keep Vein Open Sodium Chloride (Saline Flush) 2.5 ml FLUSH ASDIRECTED PRN PRN Reason: Keep Vein Open
--- NOTE | 2018-01-17 10:35 | CT ---
EXAM DATE: 01/14/18 PATIENT'S AGE: 57 Patient: SAM BASHIR Facility: [place], [place] Site . Site : 1960 Study: CT Abdomen/Pelvis wo cont [id number]/31/2018 3:28:16 PM Ordering Physician: Emerald Brar Final Report: INDICATION: ABNORMAL XRAY. UMBILICAL HERNIA SCAR, ABDOMINAL DISTENSION, AND VOMITING. CT ABDOMEN AND PELVIS WITHOUT CONTRAST TECHNIQUE: Multidetector CT imaging was performed through the abdomen and pelvis without intravenous contrast administration. Coronal and sagittal reconstructions were generated. COMPARISON: 12/20/2017 CT abdomen and pelvis. FINDINGS: Lower chest: Minimal basilar lung atelectasis or scarring, greatest on the right. Liver: Within normal limits. Gallbladder and bile ducts: No gallbladder wall thickening or calcified gallstones. No biliary dilation identified. Pancreas: Unremarkable. Spleen: Normal. Adrenals: No nodules or masses. Kidneys, ureters, and urinary bladder: No urinary tract stones identified. No renal masses or hydronephrosis. Incompletely distended urinary bladder. No bladder mass or definite wall thickening. Gastrointestinal tract and abdominal wall: Moderate abnormal distention of the proximal and mid portions of the small bowel with relative collapse of the distal small bowel, consistent with small bowel obstruction. Caliber transition appears to be in the vicinity of a segment of small bowel in the central abdomen with fecalized contents, as on image 108 of series 201 and image 68 of series 204. The appendix is normal. There are multiple sigmoid colon diverticula , without evidence of diverticulitis. Unchanged small fat containing left inguinal hernia. Vascular structures: [id number] aortoiliac atherosclerotic calcifications. Peritoneum: Trace amount of free fluid scattered in the mesentery and in the lower pelvis. No free air or evidence of intra-abdominal abscess. Lymph nodes: No pathologically enlarged nodes identified. Reproductive organs: No pelvic masses. Bones: Mild spinal degenerative changes. IMPRESSION: 1. Intermediate-grade small bowel obstruction as detailed above, with probable caliber transition in the central abdomen. Surgical adhesions could be the underlying etiology. 2. Nonacute additional findings as detailed above. SAM OAKLEY MD [employer] Dictated by Nelson Oakley MD @ 01/14/2018 3:50:57 PM Dictated by: Nelson Oakley MD @ 01/14/2018 15:51:30 (Electronic Signature) Report Signed by Proxy. MTDD
--- NOTE | 2018-01-17 10:41 | CR ---
EXAM DATE: 01/14/18 PATIENT'S AGE: 57 Patient: SAM BASHIR Facility: [place], [place] Site . Site : 1960 Study: XRay Abdomen [id number]/31/2018 4:57:31 PM Ordering Physician: Emerald Brar Final Report: INDICATION: Nasogastric tube placement TECHNIQUE: Abdominal radiograph 1 view COMPARISON: None FINDINGS: Bowel: The bowel gas pattern is normal without evidence of bowel obstruction. There are 4 undigested pills present in the left flank and 1 seen in the right flank. NG tube present with the tip in the distal esophagus. Most of the lower abdomen and pelvis are excluded. Soft tissue: No evidence of pneumoperitoneum present. No suspicious calcifications noted. Bone: Unremarkable for age. IMPRESSION: 1. NG tube present with the tip in the distal esophagus. Dictated by Randall Shin MD @ 01/14/2018 4:58:30 PM Dictated by: Randall Shin MD @ 01/14/2018 16:58:33 (Electronic Signature) Report Signed by Proxy. K[facility]OCKER HOSPITALRachna
--- NOTE | 2018-01-17 11:27 | CR ---
EXAM DATE: 01/14/18 PATIENT'S AGE: 57 Patient: SAM BASHIR Facility: [place], [place] Site . Site : 1960 Study: XRay Abdomen [id number]/1/2018 3:33:49 PM Ordering Physician: Wendy Thomas Final Report: Indication: Post NG tube placement Technique: KUB Findings: Enteric tube in the proximal stomach. Dilated small bowel loops present. Bowel gas seen distally in the rectum. Impression: Enteric tube in the proximal stomach. Dilated small bowel loops which may represent developing obstruction. Dictated by Yani Mejias MD @ Jan 15 2018 3:58PM (Electronic Signature) Report Signed by Proxy. BRIAN
== END 2018-01-16 15:18 | disposition home or self-care (01) ==
LOC: MW.ED 12:54 → MW.MS 16:12 → MW.ED 18:27
PROVIDERS: ADMIT Internal Medicine; ATTEND Internal Medicine
DX: K56.600 Partial intestinal obstruction, unspecified as to cause (principal); I10 Essential (primary) hypertension; J44.9 Chronic obstructive pulmonary disease, unspecified; K21.9 Gastro-esophageal reflux disease without esophagitis; R07.9 Chest pain, unspecified; R79.89 Other specified abnormal findings of blood chemistry; E87.6 Hypokalemia; E78.5 Hyperlipidemia, unspecified; E03.9 Hypothyroidism, unspecified; F17.210 Nicotine dependence, cigarettes, uncomplicated; F41.9 Anxiety disorder, unspecified; Z79.899 Other long term (current) drug therapy; Z88.5 Allergy status to narcotic agent
CPT/HCPCS: 36415; 74018; 74022; 74176; 80048; 80053; 80061; 81001; 82150; 83036; 83690; 83735; 84100; 84443; 84484; 85025; 85610; 86677; 93005; 96361; 96365; 96366; 96375; 99285; A9270; C9113; J1170; J1885; J2060; J2405; J3480; J7040; J7120; 96374; 96376; G0378

== ENCOUNTER 2018-02-07 07:13 | Day surgery (SDC) | payer BC ==
[~2018-02-07 07:13] MED LIST: Lactated Ringers 1,000 ML IV SCH
[2018-02-07] MEDS ORDERED: Lidocaine 2% 5 ML SDV ONE (07:26)
[2018-02-07] MEDS ORDERED: Midazolam 1 MG/ML 2 ML SDV ONE (07:27)
[2018-02-07] MEDS ORDERED: Propofol 200 MG/20 ML SDV ONE ×5 (07:27→10:37)
[2018-02-07] MEDS ORDERED: fentaNYL 100 MCG/2 ML SDV ONE ×2 (07:27→10:18)
--- NOTE | 2018-02-07 08:49 | PCM.PREANE ---
Preanesthetic Assessment - Procedure Proposed Procedure: EGD and Colonoscopy - Anesthesia/Transfusion/Family Hx Anesthesia History: Prior Anesthesia Without Reaction Family History of Anesthesia Reaction: No Transfusion History: No Prior Transfusion(s) Intubation History: Unknown - Review of Systems General: Other (continued GERD) Pulmonary: Other (COPD and [facility] w/o CPAP) Cardiovascular: Other (HTN) Gastrointestinal: Other (GERD) Neurological: No Symptoms, Other Other: Reports: Thyroid Problems (hypothyroid), Depression, Anxiety - Physical Assessment NPO Status Date: 02/06/18 NPO Status Time: 22:00 O2 Sat by Pulse Oximetry: 95 Respiratory Rate: 16 Vital Signs: Last Vital Signs Temp 97.9 F 02/07/18 07:53 Pulse 86 02/07/18 07:53 Resp 16 02/07/18 07:53 BP 141/92 H 02/07/18 07:53 Pulse Ox 95 02/07/18 07:53 Height: 2 ft 3.95 in Weight: 191 lb ASA Class: 3 Mental Status: Alert & Oriented x3 Airway Class: Mallampati = 2 Dentition: Reports: Normal Dentition Thyro-Mental Finger Breadths: 3 Mouth Opening Finger Breadths: 3 ROM/Head Extension: Limited/Partial Lungs: Clear to Auscultation, Normal Respiratory Effort Cardiovascular: Regular Rate, Regular Rhythm, No Murmurs - Allergies Allergies/Adverse Reactions: Allergies Allergy/AdvReac Type Severity Reaction Status Date / Time morphine Allergy Headache Verified 02/02/18 16:11 - Blood Blood Available: No Product(s) Available: None - Anesthesia Plan Pre-Op Medication Ordered: None - Acknowledgements Anesthesia Type Planned: MAC Pt an Appropriate Candidate for the Planned Anesthesia: Yes Alternatives and Risks of Anesthesia Discussed w Pt/Guardian: Yes Pt/Guardian Understands and Agrees with Anesthesia Plan: Yes PreAnesthesia Questionnaire HEENT History: Reports: Other (See Below) Other HEENT History: wears glasses Cardiovascular History: Reports: High Cholesterol, Hypertension Respiratory History: Reports: COPD, Sleep Apnea Other Respiratory History: does not use CPAP Gastrointestinal History: Reports: GERD, Irritable Bowel Syndrome Genitourinary History: Reports: Prostate Disorder Musculoskeletal History: Reports: Fracture, Osteoarthritis Other Musculoskeletal History: hx of fx right ankle and thumb Neurological History: Reports: Concussion Psychiatric History: Reports: Anxiety, Depression Other Psychiatric History: prior opioid addiction 7 yrs ago Endocrine/Metabolic History: Reports: Hypothyroidism Other Endocrine/Metabolic History: "thyroid problems" - Infectious Disease History Infectious Disease History: Reports: Chicken Pox, Measles - Past Surgical History Head Surgeries/Procedures: Reports: None HEENT Surgical History: Reports: Oral Surgery Other HEENT Surgeries/Procedures: dental GI Surgical History: Reports: EGD, Hernia, Abdominal Other GI Surgeries/Procedures: ventral hernia repair Musculoskeletal Surgical History: Reports: Arthroscopic Knee, ORIF, Other (See Below) Other Musculoskeletal Surgeries/Procedures:: ORIF right ankle (has hardware), hx of right knee arthroscopy x2 and left ankle arthroscopy - SUBSTANCE USE Smoking Status *Q: Current Every Day Smoker Tobacco Use Within Last Twelve Months: Cigarettes Days Per Week of Alcohol Use: 5 Number of Drinks Per Day: 2 Total Drinks Per Week: 10 Recreational Drug Use History: No - HOME MEDS Home Medications: Home Meds Glycopyrrolate/Formoterol Fum [Bevespi Aerosphere Inhaler] 2 puff INH BID PRN [History] Losartan [Cozaar] 50 mg PO DAILY 01/07/18 [History] busPIRone HCl [Buspirone HCl] 7.5 mg PO BID 01/07/18 [History] hydroCHLOROthiazide [Hydrochlorothiazide] 12.5 mg PO DAILY 01/07/18 [History] Levothyroxine [Synthroid] 50 mcg PO ACBREAKFAST 01/14/18 [History] atorvaSTATin [Lipitor] 20 mg PO BEDTIME 01/14/18 [History] - CURRENT (IN HOUSE) MEDS Current Meds: Current Medications Lactated Ringer's (Ringers, Lactated) 1,000 mls @ 125 mls/hr IV ASDIRECTED [facility] Last Admin: 02/07/18 07:52 Dose: 125 mls/hr Discontinued Medications Fentanyl (Sublimaze) Confirm Administered Dose 100 mcg .ROUTE .STK-MED ONE Stop: 02/07/18 07:28 Lidocaine (Xylocaine-Mpf 2%) Confirm Administered Dose 5 ml .ROUTE .STK-MED ONE Stop: 02/07/18 07:27 Midazolam HCl (Versed 1 Mg/Ml) Confirm Administered Dose 2 mg .ROUTE .STK-MED ONE Stop: 02/07/18 07:28 Propofol (Diprivan 20 Ml) Confirm Administered Dose 400 mg .ROUTE .STK-MED ONE Stop: 02/07/18 07:28
[2018-02-07] MEDS ORDERED: Ondansetron 4 MG/2 ML SDV IVPUSH PRN (10:43)
[2018-02-07] MEDS ORDERED: Sodium Chloride 0.9% 10 ML Syringe FLUSH PRN (10:43)
[2018-02-07] MEDS ORDERED: Sodium Chloride 0.9% 2.5 ML Syringe FLUSH PRN (10:43)
--- NOTE | 2018-02-07 10:51 | PCM.OPNOTE ---
- General Post-Op/Procedure Note Date of Surgery/Procedure: 02/07/18 Operative Procedure(s): Esophagogastroduodenoscopy with duodenal, gastric and esophageal biopsies. Colonoscopy with multiple random biopsies from the cecum, transverse colon, descending colon, sigmoid colon and rectum. Snare, sigmoid colon polypectomy. Cold sigmoid colon polypectomy. Pre Op Diagnosis: Progressive gastroesophageal reflux disease. Colorectal cancer screening. Post-Op Diagnosis: Mild duodenitis, gastritis and esophagitis. Sigmoid colon polyps 2. Nonspecific colitis. Sigmoid diverticulosis. Anesthesia Technique: MAC (ASA III) Primary Surgeon: Chaim Mckinley Asp Net Programmer: Arash Rodrigues Condition: Good Free Text/Narrative:: DICTATION [id number] CPT CODE [id number]
--- NOTE | 2018-02-07 11:08 | PCM.POSTAN ---
POST ANESTHESIA ASSESSMENT - MENTAL STATUS Mental Status: Alert, Oriented - RESPIRATORY Respiratory Status: Respiratory Rate WNL, Airway Patent, O2 Saturation Stable - CARDIOVASCULAR CV Status: Pulse Rate WNL, Blood Pressure Stable - GASTROINTESTINAL GI Status: No Symptoms - POST OP HYDRATION Hydration Status: Adequate & Stable
--- NOTE | 2018-02-07 11:23 | PCM48HPAN ---
Post Anesthesia Note - EVALUATION WITHIN 48HRS OF ANESTHETIC Vital Signs in Normal Range: Yes Patient Participated in Evaluation: Yes Respiratory Function Stable: Yes Airway Patent: Yes Cardiovascular Function Stable: Yes Hydration Status Stable: Yes Pain Control Satisfactory: Yes Nausea and Vomiting Control Satisfactory: Yes Mental Status Recovered: Yes Resp Rate: 15 - COMMENTS/OBSERVATIONS Free Text/Narrative:: ready for discharge home
--- NOTE | 2018-02-08 11:28 | OR ---
SURGEON: Chaim Mckinley M.D. DATE OF PROCEDURE: 02/07/2018 OPERATION PERFORMED: Colonoscopy with snare sigmoid polypectomy, cold distal sigmoid colon polypectomy, and multiple random biopsies from the cecum, transverse colon, descending colon, sigmoid colon, and rectum. RECORD PRESSMAN: Arash Rodrigues MD ANESTHESIA: MAC. ASA CLASSIFICATION: III. PREOPERATIVE DIAGNOSIS: Desire for colorectal cancer screening. POSTOPERATIVE DIAGNOSES: 1. Nonspecific colitis. 2. Diverticulosis. 3. Mid sigmoid colon polyp. 4. Distal sigmoid colon polyp. DESCRIPTION OF PROCEDURE: The patient was kept in the endoscopy room in the left lateral decubitus position. The colonoscope was then inserted into the rectum and advanced with moderate difficulty to the cecum. The patient does have acute, nonspecific inflammatory changes scattered throughout much of the length of the colon. Multiple random biopsies were obtained from the sites listed above to include the cecum, transverse colon, descending colon, sigmoid colon, and rectum. The patient also demonstrates diverticular changes noted in the sigmoid colon. Once the colonoscope had been inserted to the cecum, it was retroflexed to visualize the ascending colon from below, then straightened, and slowly withdrawn. Cecum, ascending colon, hepatic flexure, transverse colon, splenic flexure, descending colon, sigmoid colon, and rectum were very well visualized. Two polyps were encountered in the sigmoid colon. The largest one was removed with the snare electrocautery and recovered. The smaller polyp was removed with the cold biopsy forceps. Moderate diverticular changes noted in the sigmoid colon. In addition, there were nonspecific but acute inflammatory changes noted beginning in the transverse colon and continuing through the splenic flexure and descending colon with the most significant area of involvement being the sigmoid colon. No ulcerations were noted. The colonoscope was then withdrawn to the rectum, which also shows some inflammatory changes and separate biopsies of this area were obtained. The colonoscope was retroflexed in the rectum to visualize the anal orifice from above. No acute hemorrhoidal changes were noted. The colonoscope was then straightened, the rectum aspirated, and the colonoscope removed. The patient tolerated the procedure well and was now taken to recovery room in stable condition. LANCE / SEYMOUR /[id number]
--- NOTE | 2018-02-08 11:28 | OR ---
SURGEON: Chaim Mckinley M.D. DATE OF PROCEDURE: 02/07/2018 OPERATION PERFORMED: Esophagogastroduodenoscopy with duodenal, gastric, and esophageal biopsies. PERSONAL INJURY SPECIALIST: Arash Rodrigues MD ANESTHESIA: MAC. ASA CLASSIFICATION: III. PREOPERATIVE DIAGNOSES: 1. Progressive gastroesophageal reflux disease. 2. Abdominal bloating. POSTOPERATIVE DIAGNOSES: 1. Nonspecific duodenitis. 2. Chronic gastritis. 3. Small hiatal hernia with changes of distal esophagitis with biopsies taken at the squamocolumnar junction at 40 cm. DESCRIPTION OF PROCEDURE: The patient was taken to the endoscopy room, positioned on the endoscopy table in the left lateral decubitus position. Time-out was called for appropriate identification of the patient and procedure. Monitored anesthesia care was provided. The bite block was placed between the patient's teeth. The gastroscope was inserted through the bite block into the oropharynx and advanced without difficulty through the esophagus and stomach into the duodenum where examination was now carried out in a retrograde fashion. Random biopsies of the duodenum were obtained. The scope was then withdrawn to the stomach and antral biopsies were obtained to look for the presence of Helicobacter pylori. The gastroscope was retroflexed to visualize the proximal stomach. No lesions were noted in the cardia. The gastroscope was then slowly withdrawn. The patient does have a very small hiatal hernia and does have changes of distal esophagitis, worrisome for possible Sherman's esophagus. Biopsies at the squamocolumnar junction were obtained. This is at approximately 40 cm from the incisors. The esophagus itself demonstrates good contractility. No mid or proximal lesions were identified. The vocal cords were visualized as the scope was withdrawn and noted to move symmetrically. The gastroscope was then removed with the patient having tolerated the procedure well. Following colonoscopy, he was taken to recovery room in satisfactory condition. LANCE / SEYMOUR /[id number]
== END 2018-02-07 11:30 | disposition home or self-care (01) ==
LOC: MW.SDS 07:13
PROVIDERS: ATTEND Surgery
DX: Z12.11 Encounter for screening for malignant neoplasm of colon (principal); D12.5 Benign neoplasm of sigmoid colon; D12.8 Benign neoplasm of rectum; K62.89 Other specified diseases of anus and rectum; K57.30 Diverticulosis of large intestine without perforation or abscess without bleeding; K52.9 Noninfective gastroenteritis and colitis, unspecified; K21.9 Gastro-esophageal reflux disease without esophagitis; K29.80 Duodenitis without bleeding; K20.9 Esophagitis, unspecified; K29.50 Unspecified chronic gastritis without bleeding; K44.9 Diaphragmatic hernia without obstruction or gangrene; J44.9 Chronic obstructive pulmonary disease, unspecified; E03.9 Hypothyroidism, unspecified; I10 Essential (primary) hypertension; E78.5 Hyperlipidemia, unspecified; F17.210 Nicotine dependence, cigarettes, uncomplicated; Z79.899 Other long term (current) drug therapy; G47.33 Obstructive sleep apnea (adult) (pediatric); Z99.89 Dependence on other enabling machines and devices
CPT/HCPCS: 43239; 45380; 45385; 88305; 88312; J2250; J2704; J3010; J7120; 00813

== ENCOUNTER 2018-07-02 14:59 | Emergency (ER) | payer MEDICAID, OTHER ==
--- NOTE | 2018-07-02 15:01 | EDM.PDOC ---
ED HPI GENERAL MEDICAL PROBLEM - General Stated Complaint: NOT SLEEPING OR EATING Time Seen by Provider: 07/02/18 15:00 Source of Information: Reports: Patient History Limitations: Reports: No Limitations - History of Present Illness INITIAL COMMENTS - FREE TEXT/NARRATIVE: HISTORY AND PHYSICAL: History of present illness: Patient is a 58-year-old male who presents to the emergency room with complaints of having slept "straight for 4 days". A friend who dropped the patient off states he had been drinking alcohol this morning but wanted him to be evaluated as he has been excessively sleeping. Patient's states he is a chronic alcoholic and does not "metabolize alcohol well". He denies any fever, chills, chest pain, shortness of breath or cough. Denies any abdominal pain, nausea, vomiting, diarrhea, constipation or dysuria. States he has been eating and drinking appropriately, although "not as well as that showed". Denies any head injury, trauma or falls. Per the friend she states the patient has been drinking this morning, patient denies any alcohol use. Review of systems: As per history of present illness and below otherwise all systems reviewed and negative. Past medical history: As per history of present illness and as reviewed below otherwise noncontributory. Surgical history: As per history of present illness and as reviewed below otherwise noncontributory. Social history: See social history for further information Family history: As per history of present illness and as reviewed below otherwise noncontributory. Physical exam: General: Well-developed and well-nourished 58-year-old male. Alert and answers questions appropriately. Nontoxic appearing and in no acute distress. HEENT: Atraumatic, normocephalic, pupils equal and reactive bilaterally, negative for conjunctival pallor, mild jaundice to bilateral eyes, mucous membranes moist, TMs normal bilaterally, throat clear, neck supple, nontender, trachea midline. No drooling or trismus noted. No meningeal signs. No hot potato voice noted. Lungs: Clear to auscultation, breath sounds equal bilaterally, chest nontender. Heart: S1S2, regular rate and rhythm without overt murmur Abdomen: Soft, nondistended, nontender. Negative for masses or hepatosplenomegaly. Negative for costovertebral tenderness. Pelvis: Stable nontender. Genitourinary: Deferred. Rectal: Deferred. Skin: Intact, warm, dry. No lesions or rashes noted. Extremities: Atraumatic, moves all extremities per self without difficulty or deficits, negative for cords or calf pain. Neurovascular unremarkable. Neuro: Awake, alert, oriented. Cranial nerves II through XII unremarkable. Cerebellum unremarkable. Motor and sensory unremarkable throughout. Exam nonfocal. Notes: Patient states he has been falling and is agreeable to having a head CT done along with routine lab work at this time. Patient is alert and oriented. He is answering questions appropriately. At this time he does not want a CT scan of his abdomen, as I did share that his AST and ALT are elevated ([id number]/[id number]). He had no abdominal pain, nausea, vomiting, or change in stools. He denies any history of liver disease. Head CT shows a left posterior parietal scalp hematoma with no associated fracture or evidence of acute intracranial trauma. Patient was offered admission, he declines. He states he has a ride home and would like to be discharged. He is alert, oriented and able to eat in full sentences. He does appear coherent and able to make some decisions. Vital signs are stable. A friend at the bedside who denies any alcohol abuse, was also alert and oriented and speaking in full sentences will drive the patient home. We discussed seeking outpatient or inpatient treatment for cessation of alcohol use. He states he does want to look into treatment programs or may "quit cold turkey". Supportive care measures were reviewed and discussed. He follow-up with the primary care provider on Wednesday and return to the ED if needed and as discussed. Denies any further questions or concerns at this time. Diagnostics: CBC, CMP, UA, urine drug screen, head CT Therapeutics: IV fluids, Banana Bag Prescription: None Impression: Alcohol Abuse Alcoholic Liver Disease Plan: 1. Please seek outpatient or inpatient treatment for cessation of your alcohol use. 2. Increase your water intake. 3. Follow up with your primary care provider on Wednesday. Return to the ED as needed and as discussed. Definitive disposition and diagnosis as appropriate pending reevaluation and review of above. - Related Data Allergies Allergy/AdvReac Type Severity Reaction Status Date / Time morphine Allergy Headache Verified 04/18/18 13:17 Home Meds: Home Meds Losartan [Cozaar] 50 mg PO DAILY 01/07/18 [History] busPIRone HCl [Buspirone HCl] 7.5 mg PO BID 01/07/18 [History] hydroCHLOROthiazide [Hydrochlorothiazide] 12.5 mg PO DAILY 01/07/18 [History] Levothyroxine [Synthroid] 50 mcg PO ACBREAKFAST 01/14/18 [History] atorvaSTATin [Lipitor] 20 mg PO BEDTIME 01/14/18 [History] Past Medical History HEENT History: Reports: Other (See Below) Other HEENT History: wears glasses Cardiovascular History: Reports: High Cholesterol, Hypertension Respiratory History: Reports: COPD, Sleep Apnea Other Respiratory History: does not use CPAP Gastrointestinal History: Reports: Bowel Obstruction, GERD, Irritable Bowel Syndrome Genitourinary History: Reports: Prostate Disorder Musculoskeletal History: Reports: Fracture, Osteoarthritis Other Musculoskeletal History: hx of fx right ankle and thumb Neurological History: Reports: Concussion Psychiatric History: Reports: Anxiety, Depression Other Psychiatric History: prior opioid addiction 7 yrs ago Endocrine/Metabolic History: Reports: Hypothyroidism Other Endocrine/Metabolic History: "thyroid problems" Hematologic History: Reports: None Immunologic History: Reports: None Oncologic (Cancer) History: Reports: None Dermatologic History: Reports: None - Infectious Disease History Infectious Disease History: Reports: Chicken Pox, Mumps - Past Surgical History Head Surgeries/Procedures: Reports: None HEENT Surgical History: Reports: Oral Surgery Other HEENT Surgeries/Procedures: dental Cardiovascular Surgical History: Reports: None Respiratory Surgical History: Reports: None GI Surgical History: Reports: EGD, Hernia, Abdominal Other GI Surgeries/Procedures: ventral hernia repair Male Surgical History: Reports: None Endocrine Surgical History: Reports: None Neurological Surgical History: Reports: None Musculoskeletal Surgical History: Reports: Arthroscopic Knee, ORIF, Other (See Below) Other Musculoskeletal Surgeries/Procedures:: ORIF right ankle (has hardware), hx of right knee arthroscopy x2 and left ankle arthroscopy Oncologic Surgical History: Reports: None Dermatological Surgical History: Reports: None Social & Family History - Family History Family Medical History: Noncontributory - Caffeine Use Caffeine Use: Reports: Coffee Other Caffeine Use: 3 cups ED ROS GENERAL - Review of Systems Review Of Systems: ROS reveals no pertinent complaints other than HPI. ED EXAM, GENERAL - Physical Exam Exam: See Below (See dictation) Course - Vital Signs Last Recorded V/S: Last Vital Signs Temp 96.7 F 07/02/18 15:13 Pulse 106 H 07/02/18 15:13 Resp 18 07/02/18 15:13 BP 148/107 H 07/02/18 15:13 Pulse Ox 99 07/02/18 15:13 - Orders/Labs/Meds Orders: Active Orders 24 hr Category Date Time Status EKG Documentation Completion [RC] STAT Care 07/02/18 15:03 Active DRUG SCREEN, URINE [URCHEM] Stat Lab 07/02/18 15:02 Ordered UA RFX NIYA AND CULT IF INDIC [URIN] Stat Lab 07/02/18 15:02 Ordered Labs: Laboratory Tests 07/02/18 07/02/18 Range/Units 15:07 15:07 WBC 7.82 (4.0-11.0) K/uL RBC 5.44 (4.50-5.90) M/uL Hgb 19.4 H (13.0-17.0) g/dL Hct 54.8 H (38.0-50.0) % MCV 100.7 H (80.0-98.0) fL MCH 35.7 H (27.0-32.0) pg MCHC 35.4 (31.0-37.0) g/dL RDW Std Deviation 49.5 (28.0-62.0) fl RDW Coeff of Marito 13 (11.0-15.0) % Plt Count 205 (150-400) K/uL MPV 10.90 (7.40-12.00) fL Neut % (Auto) 79.2 (48.0-80.0) % Lymph % (Auto) 11.8 L (16.0-40.0) % Monona % (Auto) 7.5 (0.0-15.0) % Eos % (Auto) 0.6 (0.0-7.0) % Baso % (Auto) 0.9 (0.0-1.5) % Neut # (Auto) 6.2 H (1.4-5.7) K/uL Lymph # (Auto) 0.9 (0.6-2.4) K/uL Monona # (Auto) 0.6 (0.0-0.8) K/uL Eos # (Auto) 0.1 (0.0-0.7) K/uL Baso # (Auto) 0.1 (0.0-0.1) K/uL Nucleated RBC % 0.0 /100WBC Nucleated RBCs # 0 K/uL Sodium 135 L (136-148) mmol/L Potassium 3.6 (3.5-5.1) mmol/L Chloride 100 (98-107) mmol/L Carbon Dioxide 22.0 (21.0-32.0) mmol/L BUN 22 H (7.0-18.0) mg/dL Creatinine 1.1 (0.8-1.3) mg/dL Est Cr Clr Drug Dosing 79.67 mL/min Estimated GFR (MDRD) > 60.0 ml/min Glucose 265 H (74-106) mg/dL Calcium 8.6 (8.5-10.1) mg/dL Total Bilirubin 2.3 H (0.2-1.0) mg/dL AST 1406 H (15-37) IU/L ALT 567 H (14-63) IU/L Alkaline Phosphatase 98 (46-116) U/L Total Protein 7.5 (6.4-8.2) g/dL Albumin 3.7 (3.4-5.0) g/dL Globulin 3.8 (2.6-4.0) g/dL Albumin/Globulin Ratio 1.0 (0.9-1.6) Amylase 27 (25-115) U/L Lipase 271 (73-393) U/L Ethyl Alcohol 299 mg/dL Meds: Medications Discontinued Medications Generic Name Dose Route Start Last Admin Trade Name Freq PRN Reason Stop Dose Admin Sodium Chloride 1,000 mls @ 999 mls/hr 07/02/18 15:02 07/02/18 15:11 Normal Saline IV 07/02/18 16:02 999 mls/hr STAT ONE Administration Multivitamins/Minerals 10 ml/ 1,011.2 mls @ 999 mls/hr 07/02/18 15:58 17:15 Thiamine HCl 100 mg/ Folic IV 07/02/18 16:58 999 mls/hr Acid 1 mg/ Sodium Chloride ONETIME ONE Administration Departure - Departure Time of Disposition: 17:20 Disposition: Home, Self-Care 01 Clinical Impression: Alcohol abuse, Alcoholic liver disease, unspecified - Discharge Information Instructions: Alcoholic Liver Disease, [id number], Alcohol Use Disorder Referrals: PCP,None [Primary Care Provider] - Additional Instructions: The following information is given to patients seen in the emergency department who are being discharged to home. This information is to outline your options for follow-up care. We provide all patients seen in our emergency department with a follow-up referral. The need for follow-up, as well as the timing and circumstances, are variable depending upon the specifics of your emergency department visit. If you don't have a primary care physician on staff, we will provide you with a referral. We always advise you to contact your personal physician following an emergency department visit to inform them of the circumstance of the visit and for follow-up with them and/or the need for any referrals to a consulting specialist. The emergency department will also refer you to a specialist when appropriate. This referral assures that you have the opportunity for follow-up care with a specialist. All of these measure are taken in an effort to provide you with optimal care, which includes your follow-up. Under all circumstances we always encourage you to contact your private physician who remains a resource for coordinating your care. When calling for follow-up care, please make the office aware that this follow-up is from your recent emergency room visit. If for any reason you are refused follow-up, please contact the [facility] Emergency Department at and asked to speak to the emergency department charge nurse. [facility] [address] [place] [id number] [facility] [address] [place] [address] [facility] [address] [facility] [id number] Crisis Line: 1. Please seek outpatient or inpatient treatment for cessation of your alcohol use. 2. Increase your water intake. 3. Follow up with your primary care provider on Wednesday. Return to the ED as needed and as discussed. - My Orders Last 24 Hours: My Active Orders 07/02/18 15:02 DRUG SCREEN, URINE [URCHEM] Stat UA RFX NIYA AND CULT IF INDIC [URIN] Stat 07/02/18 15:03 EKG Documentation Completion [RC] STAT - Assessment/Plan Last 24 Hours: My Active Orders 07/02/18 15:02 DRUG SCREEN, URINE [URCHEM] Stat UA RFX NIYA AND CULT IF INDIC [URIN] Stat 07/02/18 15:03 EKG Documentation Completion [RC] STAT
[2018-07-02] MEDS ORDERED: Sodium Chloride 0.9% 1,000 ML IV ONE (15:02)
--- NOTE | 2018-07-02 15:41 | CR ---
INDICATION: pain FINDINGS: A single portable chest x-ray shows a normal cardiac silhouette. The lungs show no focal pulmonary opacities. Sharp pleural margins. No pneumothorax. IMPRESSION: No evidence of acute pulmonary abnormalities. Dictated by Dick Mejias MD @ 07/02/2018 3:39:37 PM Dictated by: Dick Mejias MD @ 07/02/2018 15:39:44 (Electronically Signed)
[2018-07-02 15:43] LABS: CHLORIDE,CL 100 mmol/L (98-107); SODIUM,NA 135 mmol/L (136-148)
[2018-07-02] MEDS ORDERED: MVI, Adult with Vitamin K 10 ML, Thiamine 100 MG, Folic Acid 1 MG in Sodium Chloride 0.... IV ONE ×4 (15:58)
--- NOTE | 2018-07-02 18:22 | CT ---
INDICATION: Trauma TECHNIQUE: CT head without contrast. COMPARISON: 05/16/2018 FINDINGS: CSF spaces: Within normal limits for age. Brain parenchyma: The sales-white differentiation is normal. No sign of mass, hemorrhage, or midline shift. Skull base and calvarium: The visualized paranasal sinuses and mastoid air cells demonstrate no acute or significant findings. The visualized orbits are grossly unremarkable. No skull fractures. The posterior parietal scalp hematoma. IMPRESSION: Left posterior parietal scalp hematoma with no associated fractures or evidence of acute intracranial trauma. Dictated by Joaquín Rodrigues MD @ 07/02/2018 6:21:18 PM Please note that all CT scans at this facility use dose modulation, iterative reconstruction, and/or weight-based dosing when appropriate to reduce radiation dose to as low as reasonably achievable. Dictated by: Joaquín Rodrigues MD @ 07/02/2018 18:21:23 (Electronically Signed)
== END 2018-07-02 18:39 | disposition home or self-care (01) ==
LOC: MW.ED 14:59
DX: K70.9 Alcoholic liver disease, unspecified (principal); F10.120 Alcohol abuse with intoxication, uncomplicated; E78.00 Pure hypercholesterolemia, unspecified; I10 Essential (primary) hypertension; J44.9 Chronic obstructive pulmonary disease, unspecified; K21.9 Gastro-esophageal reflux disease without esophagitis; F41.9 Anxiety disorder, unspecified; F32.9 Major depressive disorder, single episode, unspecified; E03.9 Hypothyroidism, unspecified; Z79.899 Other long term (current) drug therapy; Z88.8 Allergy status to other drugs, medicaments and biological substances
CPT/HCPCS: 70450; 71045; 80053; 82150; 83690; 85025; 96361; 96365; 99285; G0480; J3411; J7040